=== PATIENT | male | born 1960 | race African-American/Black ===

== ENCOUNTER 2020-01-28 10:28 | Inpatient (IN) | payer BC, OTHER ==
[~2020-01-28] VITALS: Ht 188 cm; Wt 131.4 kg
[2020-01-28] MEDS ORDERED: SODIUM CHLORIDE 0.9% 1,000 ML IV ONE ×2 (11:15→13:30)
[2020-01-28 11:25] LABS: Basophils # (auto) 0.1 10 ^3/uL (0-0.2); Basophils % (auto) 0.6 % (0.0-2.0); Eosinophils # (auto) 0.2 10 ^3/uL (0-0.8); Lymphocytes # (auto) 1.4 10 ^3/uL (0.4-5.4); Mean Corpuscular Hemoglobin 30.5 pg (28.0-32.0); Mean Corpuscular Hgb Conc. 32.7 g/dL (32.0-36.0); Mean Corpuscular Volume 93.5 fL (80.0-100.0); Monocytes # (auto) 1.1 10 ^3/uL (0-1.3); Neutrophils # (auto) 5.7 10 ^3/uL (1.6-8.6); Neutrophils % (auto) 67.4 % (37.0-80.0); Nucleated Red Blood Cells % 0.1 %; Platelet Count (auto) 146 10^3/uL (140-450); Red Blood Cells 5.57 10^6/uL (4.5-5.90); Red Cell Distribution Width 15.6 % (11.8-14.3); White Blood Cell 8.4 10^3/uL (4.4-10.8)
[2020-01-28 11:41] LABS: Albumin 3.8 g/dL (3.4-5.0); Magnesium 2.4 mg/dL (1.6-2.6); Potassium 4.3 mmol/L (3.5-5.1)
[2020-01-28 11:47] LABS: BUN/Creatinine Ratio 11.9; Bilirubin, Total 1.4 mg/dL (0.2-1.0); Total Protein 9.4 g/dL (6.4-8.2)
[2020-01-28] MEDS ORDERED: FUROSEMIDE 40 MG/4 ML VIAL IV ONE (13:30)
[2020-01-28] MEDS ORDERED: SPIRONOLACTONE 25 MG TAB PO ONE (13:30)
[2020-01-28] MEDS ORDERED: ASPirin 81 mg TAB PO ONE (13:30)
[2020-01-28 15:52] LABS: Urine Bacteria NONE SEEN /hpf (None Seen); Urine Blood Negative /uL (Negative); Urine Hyaline Cast FEW /lpf (0 - 2); Urine Mucus FEW (None Seen); Urine Specific Gravity 1.009 (1.001-1.035); Urine WBC <1 /hpf (0 - 3)
[2020-01-28] MEDS ORDERED: MORPHINE SULF INJ 2 MG/ML SYRINGE 1ML IV PRN (16:45)
[2020-01-28] MEDS ORDERED: ONDANSETRON HCL 4 MG/2 ML VIAL IV PRN (16:45)
[2020-01-28] MEDS ORDERED: ENALAPRILAT 1.25 MG/ML-1ML VIAL IV PRN (16:45)
[2020-01-28] MEDS ORDERED: NITROGLYCERIN 0.4 MG SL TAB SL PRN (16:45)
[2020-01-28] MEDS ORDERED: ACETAMINOPHEN 500 MG TAB PO PRN (16:45)
[2020-01-28] MEDS ORDERED: ENOXAPARIN SOD 100 MG/1 ML SYRINGE SC ONE (20:00)
[2020-01-28 22:00] VITALS: BP 125/81
[2020-01-28] MEDS: METOPROLOL TARTRATE 25 MG TAB PO SCH (22:00)
[2020-01-28] MEDS: ATORVASTATIN 20 MG TAB PO SCH (22:17)
[2020-01-28 22:45] VITALS: BP 115/71
--- NOTE | 2020-01-28 23:38 | NUR ---
Received 59 y/o male alert and oriented. Came for cough and shortness of breath x 1 week. History of poorly controlled blood pressure and HiV, CKD3. Able to verbally respond, able to complete sentences but unable to offer information about self. No noted respiratory distress. Vitals stable. (Denied having any cough). On 2 LPM nc. Routine admission done. Urinal provided at bedside. Snack per patient request. Placed on NPO after midnight, patient expressed understanding. Recommended for cardio consult. Part of history taking, noted patient has issue with transportation as he is only renting a car. Will need follow up with SS or CM on discharge planning. Will endorse to next shift.
[2020-01-29] MEDS ORDERED: POM PO (04:26)
[2020-01-29] MEDS ORDERED: PNEUMOCOCCAL VACC POLYS 25 MCG/0.5 ML VIAL IM ONE (04:30)
--- NOTE | 2020-01-29 05:47 | NUR ---
Patient maintained on NPO after midnight. No acute distress overnight. Bed at lowest position. Fall precaution per protocols. Call light within reach.
--- NOTE | 2020-01-29 06:43 | NUR ---
Would like to be given both Pneumo and Flu vaccines while he is confined here in the hospital. Don't remember the last doses he had fro them.
--- NOTE | 2020-01-29 06:43 | NUR ---
Patient stated he only has biktarvy and tylenol as meds he takes at home.
[2020-01-29 06:47] VITALS: BP 110/69
[2020-01-29 06:54] LABS: INR 1.08 (0.9-1.15); Partial Thromboplastin Time 28.1 sec (23.0-31.2)
[2020-01-29 07:06] LABS: Potassium 4.2 mmol/L (3.5-5.1)
[2020-01-29 07:14] LABS: BUN/Creatinine Ratio 18.3; Calcium 8.5 mg/dL (8.5-10.1)
[2020-01-29 08:00] VITALS: BP 95/58
[2020-01-29 09:30] VITALS: BP 112/66
[2020-01-29] MEDS: ASPirin-EC 81 mg tab PO SCH (10:17)
[2020-01-29] MEDS: METOPROLOL TARTRATE 25 MG TAB PO SCH ×2 (10:17→21:42)
[2020-01-29] MEDS: FAMOTIDINE 20 MG TAB PO SCH (10:17)
[2020-01-29] MEDS: LISINOPRIL 10 MG TAB PO SCH (10:17)
[2020-01-29] MEDS: APIXABAN 5 MG TAB PO SCH ×2 (13:32→21:40)
[2020-01-29] MEDS: MORPHINE SULF INJ 2 MG/ML SYRINGE 1ML IV PRN ×2 (15:19→23:26)
[2020-01-29 16:39] VITALS: BP 109/75
--- NOTE | 2020-01-29 19:11 | NUR ---
Opening Shift Note Assumed care of patient after receiving report from AMERICO Williamson. Patient is awake and alert with no S/S of distress/SOB or pain. Call light within reach, bed in lowest locked position x2 side rails, HOB semi fowlers. Instructed on POC and to call for assist PRN, will continue to monitor for changes Q1hr and PRN.
[2020-01-29] MEDS: ATORVASTATIN 20 MG TAB PO SCH (21:41)
[2020-01-29 22:00] VITALS: BP 121/78
[2020-01-30] MEDS ORDERED: CALCIUM CARB 500 MG CHEW TAB PO PRN (01:45)
[2020-01-30] MEDS: HYDROcodone-ACET 5/325MG TAB PO PRN (02:51)
[2020-01-30 05:00] VITALS: BP 120/69
[2020-01-30 09:05] VITALS: BP 118/77
[2020-01-30] MEDS: ASPirin-EC 81 mg tab PO SCH (10:00)
[2020-01-30] MEDS ORDERED: PANTOPRAZOLE 40 MG TAB PO SCH (10:00)
[2020-01-30] MEDS: APIXABAN 5 MG TAB PO SCH ×2 (10:00→22:35)
[2020-01-30] MEDS: FAMOTIDINE 20 MG TAB PO SCH (10:00)
[2020-01-30] MEDS: METOPROLOL TARTRATE 25 MG TAB PO SCH ×2 (10:00→22:43)
[2020-01-30] MEDS: LISINOPRIL 10 MG TAB PO SCH (10:01)
[2020-01-30] MEDS ORDERED: HYDROmorphone HCL 2 MG/ML VL IV ONE (11:45)
[2020-01-30 12:04] LABS: Basophils # (auto) 0 10 ^3/uL (0-0.2); Basophils % (auto) 0.2 % (0.0-2.0); Eosinophils # (auto) 0 10 ^3/uL (0-0.8); Eosinophils % (auto) 0.3 % (0.0-7.0); Hematocrit 47.3 % (41.0-53.0); Hemoglobin 15.8 g/dL (13.5-17.5); Lymphocytes # (auto) 1.1 10 ^3/uL (0.4-5.4); Lymphocytes % (auto) 10.6 % (10.0-50.0); Mean Corpuscular Hemoglobin 31.3 pg (28.0-32.0); Mean Corpuscular Hgb Conc. 33.3 g/dL (32.0-36.0); Mean Corpuscular Volume 93.9 fL (80.0-100.0); Monocytes # (auto) 1.2 10 ^3/uL (0-1.3); Monocytes % (auto) 11.4 % (0.0-12.0); Neutrophils # (auto) 8.2 10 ^3/uL (1.6-8.6); Neutrophils % (auto) 77.5 % (37.0-80.0); Nucleated Red Blood Cells % 0.1 %; Platelet Count (auto) 179 10^3/uL (140-450); Red Blood Cells 5.04 10^6/uL (4.5-5.90); White Blood Cell 10.5 10^3/uL (4.4-10.8)
[2020-01-30 12:15] LABS: Albumin 3.6 g/dL (3.4-5.0); Calcium 9.5 mg/dL (8.5-10.1); Potassium 5.3 mmol/L (3.5-5.1)
[2020-01-30 12:17] LABS: Bilirubin, Total 1.2 mg/dL (0.2-1.0); Total Protein 9.5 g/dL (6.4-8.2)
[2020-01-30 13:00] VITALS: BP 125/83
[2020-01-30] MEDS ORDERED: SODIUM CHLORIDE 0.9% 1,000 ML IV ONE (13:30)
[2020-01-30] MEDS ORDERED: DOXYCYCLINE 100 MG TAB/CAP PO ONE (13:30)
[2020-01-30] MEDS ORDERED: cefTRIAXone 1GM/50ML D5W 50 ML IV ONE (13:30)
[2020-01-30] MEDS ORDERED: IOHEXOL 350 MG/ML 100ML IJ ONE (13:57)
--- NOTE | 2020-01-30 14:15 | NUR ---
assessment re: ss consult Patient is a 59 year old male who is alert and oriented. Patients cognitive abilities are intact. Prior to admission patient lived home alone and functioned independently. Patient informed me he is able to care for his own ADLs. Per patient he will return home to his prior living arrangements post discharge. Patient drove himself here and has his car in the parking lot. Patient informed me he has no need for DME prior to admission. 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 Patients PCP is Dr Soto. I informed patient of his ss consult of has no car, using a rental, no job, no access to food and medical care, no family here. 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 Patient has access to food, and medical care. Patient has good insurance and patient informed me his only issue was no getting the blood pressure pills he wanted. Patient informed me Dr Soto prescribed medication he did not want. Patient has talked to Marybeth Cm regarding changing PCP. Patient informed me he has no other issues. Patient is concerned about his health and wants to speak to the MD regarding his care. MD notified. I informed patient he has a right to speak to a social service liaison regarding all care. I informed patient he has a right to participate in any and all discharge planning. Patient does not have a POA and advanced directive. I have offered patient information on POA and advanced directives. I informed the patient the advantages and benefits of having an Advanced Directive. Patient verbalized understanding and agreed to discharge plan. Addendum: 01/30/20 at 1426 by Marybeth MATA Amended: Links added.
[2020-01-30 17:00] VITALS: BP 112/64
--- NOTE | 2020-01-30 19:20 | NUR ---
Opening Shift Note Assumed care of patient, awake and alert. No S/S of distress/SOB or pain. Safety measures in place bed in lowest position, side rails up x2, and call light within reach. Instructed on POC and to call for assist PRN, will continue to monitor for changes Q1hr and PRN.
[2020-01-30] MEDS: HYDROmorphone HCL 2 MG/ML VL IV PRN (19:51)
[2020-01-30 22:00] VITALS: BP 100/57
[2020-01-30] MEDS: DOXYCYCLINE 100 MG TAB/CAP PO SCH (22:35)
[2020-01-30] MEDS: ATORVASTATIN 20 MG TAB PO SCH (22:35)
--- NOTE | 2020-01-31 00:27 | NUR ---
IV removal IV DC'd with sterile technique, catheter fully intact. Pressure dressing applied to site. Patient tolerated procedure well. IV access obtained, via clean sterile technique by inserting 22 gauge catheter at Right hand after 1 attempt. IV secured properly. No trauma to site. Patient tolerated procedure well.
[2020-01-31] MEDS: HYDROmorphone HCL 2 MG/ML VL IV PRN ×3 (04:31→23:51)
[2020-01-31 05:00] VITALS: BP 127/65
[2020-01-31 06:47] LABS: Calcium 9.2 mg/dL (8.5-10.1)
--- NOTE | 2020-01-31 07:36 | NUR ---
CRITICAL POTASSIUM CRITICAL POTASSIUM- 5.6 HOSPITALIST PAGED.
[2020-01-31 07:40] LABS: Potassium 5.6 mmol/L (3.5-5.1)
--- NOTE | 2020-01-31 07:55 | NUR ---
RECEIVED CALL FROM HOSPITALIST NEW ORDERS RECEIVED, READ BACK AND VERIFIED.
--- NOTE | 2020-01-31 08:01 | NUR ---
SPOKE TO PHARMACY MEDICATION NOT AVAILABLE, HOSPITALIST PAGED.
--- NOTE | 2020-01-31 08:08 | NUR ---
HOSPITALIST DR CANTRELL CALLED. NEW ORDERS RECEIVED, READ BACK AND VERIFIED.
[2020-01-31] MEDS ORDERED: FUROSEMIDE 40 MG/4 ML VIAL IV ONE (08:30)
[2020-01-31] MEDS ORDERED: SODIUM ZIRCONIUM CYCL 10 GM PAK PO ONE (08:30)
[2020-01-31] MEDS ORDERED: SODIUM BICARBONATE 8.4% INJ 50ML SYRINGE IV ONE (08:30)
[2020-01-31] MEDS ORDERED: ALBUTEROL SULF 2.5 MG/0.5ML(0.5%) NEB SOLN NEB ONE (08:30)
[2020-01-31 08:36] VITALS: BP 95/51
[2020-01-31] MEDS: APIXABAN 5 MG TAB PO SCH ×2 (08:56→21:30)
[2020-01-31] MEDS: FAMOTIDINE 20 MG TAB PO SCH (08:56)
[2020-01-31] MEDS: DOXYCYCLINE 100 MG TAB/CAP PO SCH ×2 (08:57→21:30)
[2020-01-31] MEDS: ASPirin-EC 81 mg tab PO SCH (08:57)
[2020-01-31] MEDS: cefTRIAXone 1GM/50ML D5W 50 ML IV SCH (08:58)
--- NOTE | 2020-01-31 09:21 | NUR ---
Respiratory note: PT GIVEN A ONE TIME MEDNEB TX VIA AEROSOL MASK OF 20MG ALBUTEROL/4.0 ML SALINE OVER 20-30 MINUTES FOR HYPERKALEMIA PER DR REDDING ORDER. NO ADVERSE EFFECTS NOTED. PT TOLERATED TX WELL. SPO2 97% ON 4L NC, HR 69, RR 18, BS CLEAR/DIMINISHED BILATERALLY. WILL CONTINUE TO MONITOR PT
[2020-01-31] MEDS: METOPROLOL TARTRATE 25 MG TAB PO SCH (10:00)
--- NOTE | 2020-01-31 12:35 | NUR ---
Nutrition Assessment Est energy needs [id number] kcal (14-16 kcal/kg BW 126.5kg) Est protein needs 86-104g (1-1.2g/kg IBW 86kg) Will reassess prn Addendum: 01/31/20 at [address] Amended: Links added.
[2020-01-31 12:53] VITALS: BP 141/73
[2020-01-31] MEDS: SODIUM ZIRCONIUM CYCL 10 GM PAK PO SCH ×2 (15:33→22:00)
[2020-01-31 17:00] VITALS: BP 147/82
--- NOTE | 2020-01-31 18:48 | NUR ---
Closing note Pt. resting in bed. No s/s of distress noted. Care endorsed.
--- NOTE | 2020-01-31 20:00 | NUR ---
Opening Shift Note Assumed care of patient, awake and alert. No S/S of distress/SOB or pain. Instructed on POC and to call for assist PRN, will continue to monitor for changes Q1hr and PRN. Bed in low position and call in reach.
[2020-01-31] MEDS: ATORVASTATIN 20 MG TAB PO SCH (21:31)
[2020-01-31] MEDS: HYDROcodone-ACET 5/325MG TAB PO PRN (21:31)
--- NOTE | 2020-01-31 21:31 | NUR ---
Patient complains of pain to left lateral back 7 out of 10 on 1-10 pain scale. He states he finds comfort sitting up with head on bedside table. Medication with [place] on tab PO.
[2020-01-31 23:01] VITALS: BP 129/78
--- NOTE | 2020-01-31 23:51 | NUR ---
Patient complains of left upper back pain. Medicated with Dilaudid 1 mg IVP for pain 6/10. Patient noted leaning forward with head on bedside table.
--- NOTE | 2020-02-01 03:30 | NUR ---
Opening Shift Note Assumed care of patient, awake and alert. No S/S of distress/SOB or pain. Bed in lowest locked position, side rails up x2, call light within reach. Instructed on POC and to call for assist PRN, will continue to monitor for changes Q1hr and PRN. Addendum: 02/01/20 at 0401 by TOMAS FLORES RN RN ADDITION: Assumed care from ANNABELLE Hilton for continuation of care.
--- NOTE | 2020-02-01 03:30 | NUR ---
Patient's status reported to AMERICO Banks.
[2020-02-01 05:34] VITALS: BP 137/77
[2020-02-01] MEDS: SODIUM ZIRCONIUM CYCL 10 GM PAK PO SCH ×3 (06:17→21:02)
[2020-02-01] MEDS: HYDROmorphone HCL 2 MG/ML VL IV PRN ×3 (06:17→21:03)
[2020-02-01 06:56] LABS: BUN/Creatinine Ratio 23.5; Calcium 9.1 mg/dL (8.5-10.1); Potassium 5.5 mmol/L (3.5-5.1)
--- NOTE | 2020-02-01 07:02 | NUR ---
Closing Note Patient sitting up in bed, no s/s of distress. Bed in lowest locked position, call light within reach. Will endorse care to dayshift RN.
--- NOTE | 2020-02-01 07:28 | NUR ---
Opening Shift Note Assumed care of patient, awake and alert x4. No S/S of distress/SOB. Pt. reports pain 5 out of 10. This RN will address this as prescribed by doctor. Safety measures in place bed in lowest position, side rails up x2, and call light within reach. Instructed on POC and to call for assist PRN, will continue to monitor for changes Q1hr and PRN.
[2020-02-01 09:00] VITALS: BP 138/68
[2020-02-01] MEDS: cefTRIAXone 1GM/50ML D5W 50 ML IV SCH (10:47)
[2020-02-01] MEDS: DOXYCYCLINE 100 MG TAB/CAP PO SCH ×2 (10:48→21:02)
[2020-02-01] MEDS: ASPirin-EC 81 mg tab PO SCH (10:48)
[2020-02-01] MEDS: APIXABAN 5 MG TAB PO SCH ×2 (10:48→21:02)
[2020-02-01] MEDS: FAMOTIDINE 20 MG TAB PO SCH (10:56)
[2020-02-01] MEDS ORDERED: FUROSEMIDE 40 MG/4 ML VIAL IV ONE (11:15)
[2020-02-01] MEDS ORDERED: SODIUM CHLORIDE 0.9% 1,000 ML IV ONE (11:30)
--- NOTE | 2020-02-01 12:24 | NUR ---
Specimen cup provided to pt. Pt. asher.
[2020-02-01] MEDS ORDERED: DOCUSATE SOD 100 MG CAP PO ONE (12:45)
[2020-02-01 13:00] VITALS: BP 154/87
[2020-02-01 17:00] VITALS: BP 144/78
--- NOTE | 2020-02-01 18:20 | NUR ---
This RN gave hydroguard cream to Pt. for dry scaly skin on fourth toe of right foot.
--- NOTE | 2020-02-01 18:48 | NUR ---
Closing note Pt. resting in bed. No s/s of distress noted. Care endorsed.
[2020-02-01] MEDS: DOCUSATE SOD 100 MG CAP PO SCH (21:02)
[2020-02-01] MEDS: ATORVASTATIN 20 MG TAB PO SCH (21:02)
[2020-02-01 23:38] VITALS: BP 131/92
[2020-02-02 05:30] VITALS: BP 126/62
[2020-02-02 06:29] LABS: BUN/Creatinine Ratio 21.1; Calcium 8.7 mg/dL (8.5-10.1); Potassium 3.7 mmol/L (3.5-5.1)
--- NOTE | 2020-02-02 06:32 | NUR ---
Closing Note Patient lying in bed, eyes closed, respirations even and unlabored, appears asleep. Patient awakens to name and touch. Bed in lowest locked position, call light within reach. Will endorse care to dayshift RN.
[2020-02-02] MEDS: SODIUM ZIRCONIUM CYCL 10 GM PAK PO SCH (06:44)
--- NOTE | 2020-02-02 07:20 | NUR ---
Opening Shift Note Assumed care of patient, awake and alert x4. No S/S of distress/SOB. Safety measures in place bed in lowest position, side rails up x2, and call light within reach. Instructed on POC and to call for assist PRN, will continue to monitor for changes Q1hr and PRN.
[2020-02-02 09:00] VITALS: BP 113/65
[2020-02-02] MEDS: cefTRIAXone 1GM/50ML D5W 50 ML IV SCH (09:52)
[2020-02-02] MEDS: DOXYCYCLINE 100 MG TAB/CAP PO SCH ×2 (09:57→21:43)
[2020-02-02] MEDS: FAMOTIDINE 20 MG TAB PO SCH (09:57)
[2020-02-02] MEDS: ASPirin-EC 81 mg tab PO SCH (09:58)
[2020-02-02] MEDS: DOCUSATE SOD 100 MG CAP PO SCH ×2 (09:58→21:42)
[2020-02-02] MEDS: APIXABAN 5 MG TAB PO SCH ×2 (09:58→21:42)
[2020-02-02 13:00] VITALS: BP 132/71
[2020-02-02 17:00] VITALS: BP 141/85
--- NOTE | 2020-02-02 18:49 | NUR ---
Closing note Pt. resting in bed. No s/s of distress noted. Care endorsed.
--- NOTE | 2020-02-02 19:25 | NUR ---
Opening Shift Note Assumed care of patient, awake and alert A/O x 4. No S/S of distress/SOB or pain. Safety measures in place bed lowered and locked side rails up x 2 call light and beside table within reach. Tele box matches Pt and all leads are in position. Instructed on POC and to call for assist PRN, will continue to monitor for changes Q1hr and PRN.
[2020-02-02] MEDS: ATORVASTATIN 20 MG TAB PO SCH (21:43)
[2020-02-02] MEDS: HYDROmorphone HCL 2 MG/ML VL IV PRN (21:44)
[2020-02-02 23:08] VITALS: BP 124/74
[2020-02-03] MEDS: HYDROmorphone HCL 2 MG/ML VL IV PRN ×3 (01:45→18:01)
[2020-02-03 05:00] VITALS: BP 134/71
--- NOTE | 2020-02-03 07:45 | NUR ---
Opening Note Received report from marine firefighter RN. Patient is awake, alert and oriented x4. No signs or symptoms of distress noted at this time. Patient is on room air, respirations even and unlabored. Reviewed plan of care with patient, patient verbalized understanding. Bed in low and locked position, call light within reach. Will continue to monitor Q1 hour and PRN.
[2020-02-03] MEDS: DOCUSATE SOD 100 MG CAP PO SCH ×2 (08:31→22:20)
[2020-02-03] MEDS: FAMOTIDINE 20 MG TAB PO SCH (08:31)
[2020-02-03] MEDS: APIXABAN 5 MG TAB PO SCH ×2 (08:32→22:20)
[2020-02-03] MEDS: DOXYCYCLINE 100 MG TAB/CAP PO SCH ×2 (08:32→22:20)
[2020-02-03] MEDS: ASPirin-EC 81 mg tab PO SCH (08:32)
--- NOTE | 2020-02-03 08:35 | NUR ---
Pain Patient complains of pain to left upper back 8/10 and is requesting pain medications. Will medicate per orders. Will continue to monitor Q1 hour and PRN.
[2020-02-03] MEDS: cefTRIAXone 1GM/50ML D5W 50 ML IV SCH (08:39)
[2020-02-03 09:00] VITALS: BP 133/76
--- NOTE | 2020-02-03 09:05 | NUR ---
Pain reassessment Patient states pain is 4/10 and is resting comfortably in bed. Will continue to monitor Q1 hour and PRN.
--- NOTE | 2020-02-03 11:20 | NUR ---
Dr. Coy at bedside MD at bedside at bedside discussing plan of care with patient and this RN. New order received for chest x-ray, will implement new order. Will continue to monitor Q1 hour and PRN.
[2020-02-03 13:00] VITALS: BP 127/75
--- NOTE | 2020-02-03 14:50 | NUR ---
Nutrition Followup Note Wt: 131.2 kg Pt was sleeping with no family by bedside. per pt records pt with pulmonary embolism. pt with no distress noted. pt is currently on cardiac K 2 diet with adequate Po of 75% x 6 per RN doc Est energy needs [phone] kcal (14-16 kcal/kg BW 126.5kg) Est protein needs 86-104g (1-1.2g/kg IBW 86kg) Will reassess prn Labs: BUN 24 H BM: Pt with 1 BMs yesterday per RN note Skin: BS 21 low risk, full details in residential caregiver note PES: Obesity aeb pt with a BMI of 35.8kg/m2 r/t caloric intake in excess of needs Comments: Will continue to monitor PO intake, skin status. F/u mod 3-5 days Rec: 1) refer pt to [facility] on DC. 2) Continue current plan of care
[2020-02-03 16:58] VITALS: BP 133/79
--- NOTE | 2020-02-03 19:15 | NUR ---
Closing Note Report given to plant operator/shift supervisor RN. No signs or symptoms of distress noted at this time.
[2020-02-03 20:00] VITALS: BP 140/75
[2020-02-03 22:00] VITALS: BP 140/75
[2020-02-03] MEDS: ATORVASTATIN 20 MG TAB PO SCH (22:20)
[2020-02-04] MEDS: HYDROmorphone HCL 2 MG/ML VL IV PRN (04:29)
[2020-02-04 05:00] VITALS: BP 117/59
--- NOTE | 2020-02-04 07:30 | NUR ---
Opening Shift Note Assumed care of patient, awake and alert. No S/S of distress/SOB or pain. Instructed on POC and to call for assist PRN, will continue to monitor for changes Q1hr and PRN. Fall precautions in place per safety protocol.
[2020-02-04 08:58] VITALS: BP 139/71
[2020-02-04] MEDS: APIXABAN 5 MG TAB PO SCH (09:14)
[2020-02-04] MEDS: DOCUSATE SOD 100 MG CAP PO SCH (09:14)
[2020-02-04] MEDS: FAMOTIDINE 20 MG TAB PO SCH (09:14)
[2020-02-04] MEDS: ASPirin-EC 81 mg tab PO SCH (09:14)
[2020-02-04] MEDS: cefTRIAXone 1GM/50ML D5W 50 ML IV SCH (09:14)
[2020-02-04] MEDS: DOXYCYCLINE 100 MG TAB/CAP PO SCH (09:15)
[2020-02-04] MEDS ORDERED: APIX5TAB PO (09:47)
[2020-02-04] MEDS ORDERED: ATOR20TA50 PO (09:48)
[2020-02-04 10:15] LABS: Basophils # (auto) 0 10 ^3/uL (0-0.2); Basophils % (auto) 0.5 % (0.0-2.0); Eosinophils # (auto) 0.2 10 ^3/uL (0-0.8); Eosinophils % (auto) 3.1 % (0.0-7.0); Hematocrit 40.4 % (41.0-53.0); Hemoglobin 13.6 g/dL (13.5-17.5); Lymphocytes # (auto) 0.7 10 ^3/uL (0.4-5.4); Mean Corpuscular Hemoglobin 31.2 pg (28.0-32.0); Mean Corpuscular Hgb Conc. 33.7 g/dL (32.0-36.0); Mean Corpuscular Volume 92.8 fL (80.0-100.0); Monocytes # (auto) 0.5 10 ^3/uL (0-1.3); Monocytes % (auto) 8.3 % (0.0-12.0); Neutrophils # (auto) 4.5 10 ^3/uL (1.6-8.6); Neutrophils % (auto) 76.1 % (37.0-80.0); Platelet Count (auto) 290 10^3/uL (140-450); Red Blood Cells 4.35 10^6/uL (4.5-5.90); Red Cell Distribution Width 14.2 % (11.8-14.3); White Blood Cell 5.9 10^3/uL (4.4-10.8)
[2020-02-04 10:37] LABS: BUN/Creatinine Ratio 12.5; Calcium 9.1 mg/dL (8.5-10.1); Potassium 3.7 mmol/L (3.5-5.1)
[2020-02-04] MEDS ORDERED: [UNRECOGNIZED DRUG - CODE] PO (11:21)
[2020-02-04] MEDS ORDERED: PNEUMOCOCCAL VACC POLYS 25 MCG/0.5 ML VIAL IM ONE (12:15)
[2020-02-04] MEDS ORDERED: LEVOTHYROXINE SODIUM 50 MCG TAB PO ONE (12:30)
[2020-02-04 12:32] VITALS: BP 129/88
[2020-02-04 13:00] VITALS: BP 129/88
--- NOTE | 2020-02-04 14:30 | NUR ---
Discharge instructions given as ordered. Encourage to follow up with PMD as instructed. All questions and concerns addressed. Patient verbalized understanding. Medication reconciliation form completed and copy given to patient. Needed vaccines given. IV removed with catheter intact, pressure dressing applied. Telemetry unit returned to ICU. Patient taken to vehicle via wheelchair with all personal belongings, accompanied by staff and family member. New medications given to patient at bedside, including Eliquis. Discharge appointments made with PCP, Pulmonology, and Cardiology. No distress noted at time of departure.
[2020-02-05] MEDS ORDERED: LEVOTHYROXINE SODIUM 50 MCG TAB PO SCH (07:00)
[2020-02-05] MEDS ORDERED: APIXABAN 5 MG TAB PO SCH (22:00)
== END 2020-02-04 14:30 | disposition home or self-care (01) | DRG 280 ==
LOC: ER 10:28 → TELE 10:29 → TELE-WESTW 22:31
PROVIDERS: ADMIT Nurse Practitioner Acute Care; ATTEND Internal Medicine Nephrology
DX: I21.A1 Myocardial infarction type 2 (principal); J96.01 Acute respiratory failure with hypoxia; I26.99 Other pulmonary embolism without acute cor pulmonale; J18.9 Pneumonia, unspecified organism; J90 Pleural effusion, not elsewhere classified; J98.11 Atelectasis; N17.9 Acute kidney failure, unspecified; I82.401 Acute embolism and thrombosis of unspecified deep veins of right lower extremity; N18.30 Chronic kidney disease, stage 3 unspecified; I12.9 Hypertensive chronic kidney disease with stage 1 through stage 4 chronic kidney disease, or unspecified chronic kidney disease; E66.01 Morbid (severe) obesity due to excess calories; E87.5 Hyperkalemia; E03.9 Hypothyroidism, unspecified; Z20.828 Contact with and (suspected) exposure to other viral communicable diseases; Z68.37 Body mass index [BMI] 37.0-37.9, adult; Z82.49 Family history of ischemic heart disease and other diseases of the circulatory system; Z79.899 Other long term (current) drug therapy
CPT/HCPCS: 36415; 36600; 71045; 71046; 71275; 78582; 80048; 80053; 81001; 82805; 83735; 83880; 84132; 84439; 84443; 84484; 85025; 85379; 85610; 85730; 86141; 87081; 87426; 93306; 93970; 94640; G0378; J0696; J2405

== ENCOUNTER 2020-08-17 08:45 | Inpatient (IN) | payer BC ==
[~2020-08-17] VITALS: Ht 185.4 cm; Wt 127.0 kg
[~2020-08-17 08:45] MED LIST: APIX5TAB PO; ATOR20TA50 PO; POM PO; [UNRECOGNIZED DRUG - CODE] PO
[2020-08-17] MEDS ORDERED: methylPREDNISolone SOD SUCC 125 MG/2 ML VL IV ONE (09:15)
[2020-08-17] MEDS ORDERED: PANTOPRAZOLE 40 MG/10 ML VIAL INJ IV ONE (09:15)
[2020-08-17] MEDS ORDERED: ONDANSETRON HCL 4 MG/2 ML VIAL IV ONE (11:15)
[2020-08-17] MEDS ORDERED: SODIUM CHLORIDE 0.9% 1,000 ML IV ONE ×2 (11:15)
[2020-08-17] MEDS ORDERED: MORPHINE SULFATE 4 MG/ML SYR/VIAL IV ONE (11:15)
[2020-08-17 11:32] LABS: Basophils # (auto) 0 10 ^3/uL (0-0.2); Basophils % (auto) 0.3 % (0.0-2.0); Eosinophils # (auto) 0.1 10 ^3/uL (0-0.8); Eosinophils % (auto) 0.8 % (0.0-7.0); Hematocrit 47.5 % (41.0-53.0); Lymphocytes # (auto) 0.6 10 ^3/uL (0.4-5.4); Lymphocytes % (auto) 5.7 % (10.0-50.0); Mean Corpuscular Hemoglobin 30.4 pg (28.0-32.0); Mean Corpuscular Hgb Conc. 33.7 g/dL (32.0-36.0); Mean Corpuscular Volume 90.4 fL (80.0-100.0); Monocytes # (auto) 0.5 10 ^3/uL (0-1.3); Monocytes % (auto) 4.9 % (0.0-12.0); Neutrophils # (auto) 9.2 10 ^3/uL (1.6-8.6); Neutrophils % (auto) 88.3 % (37.0-80.0); Nucleated Red Blood Cells % 0.2 %; Platelet Count (auto) 246 10^3/uL (140-450); Red Blood Cells 5.25 10^6/uL (4.5-5.90); White Blood Cell 10.4 10^3/uL (4.4-10.8)
[2020-08-17 11:51] LABS: INR 1.03 (0.9-1.15); Partial Thromboplastin Time 25.6 sec (23.0-31.2)
[2020-08-17 12:15] LABS: Blood Urea Nitrogen 19 mg/dL (7-18); Calcium 9.1 mg/dL (8.5-10.1); Carbon Dioxide 19 mmol/L (21-32); Glucose 98 mg/dL (74-106)
[2020-08-17] MEDS ORDERED: ONDANSETRON HCL 4 MG/2 ML VIAL IV PRN (12:30)
[2020-08-17] MEDS ORDERED: NITROGLYCERIN 0.4 MG SL TAB SL PRN (12:30)
[2020-08-17] MEDS ORDERED: hydrALAZINE HCL 20 MG/ML VL IV PRN (12:30)
[2020-08-17] MEDS ORDERED: ACETAMINOPHEN 500 MG TAB PO PRN (12:30)
[2020-08-17] MEDS ORDERED: MORPHINE SULF INJ 2 MG/ML SYRINGE 1ML IV PRN ×2 (12:30)
[2020-08-17] MEDS ORDERED: IOHEXOL 350 MG/ML 100ML IJ ONE (12:32)
[2020-08-17 12:56] LABS: Alanine Aminotransferase 26 U/L (16-61); Alkaline Phosphatase 47 U/L (45-117); Aspartate Aminotransferase 30 U/L (15-37); BUN/Creatinine Ratio 17.6; Bilirubin, Total 0.9 mg/dL (0.2-1.0); GFR African American 90 mL/min; GFR Non-African American 75 mL/min; Total Protein 8.9 g/dL (6.4-8.2)
[2020-08-17 13:01] LABS: Anion Gap 10 (5-15); Chloride 107 mmol/L (98-107); Potassium 4.1 mmol/L (3.5-5.1); Sodium 136 mmol/L (136-145)
[2020-08-17] MEDS: cefTRIAXone 1GM/50ML D5W 50 ML IV SCH (13:21)
[2020-08-17] MEDS: HYDROcodone-ACET 5/325MG TAB PO PRN ×2 (15:09→21:40)
[2020-08-17] MEDS: CLINDAMYCIN 300MG IV 50 ML IV SCH ×2 (15:09→21:39)
[2020-08-17 15:42] VITALS: BP 141/81
[2020-08-17] MEDS ORDERED: BICT1TAB PO (16:09)
[2020-08-17 16:30] VITALS: BP 144/74
[2020-08-17 19:31] LABS: Urine Bacteria NONE SEEN /hpf (None Seen); Urine Blood Negative /uL (Negative); Urine Mucus FEW (None Seen); Urine WBC 2 /hpf (0 - 3)
[2020-08-17 19:32] LABS: Urine Specific Gravity > 1.050 (1.001-1.035)
[2020-08-17 21:39] VITALS: BP 145/69
[2020-08-17] MEDS: ENOXAPARIN SOD 150 MG/1 ML SYRINGE SC SCH (21:40)
[2020-08-18] MEDS: CLINDAMYCIN 300MG IV 50 ML IV SCH ×3 (05:38→21:39)
[2020-08-18] MEDS: HYDROcodone-ACET 5/325MG TAB PO PRN ×2 (05:39→13:40)
[2020-08-18] MEDS: LEVOTHYROXINE SODIUM 50 MCG TAB PO SCH (05:39)
[2020-08-18 08:50] VITALS: BP 131/77
[2020-08-18] MEDS: cefTRIAXone 1GM/50ML D5W 50 ML IV SCH (08:51)
[2020-08-18] MEDS: PANTOPRAZOLE 40 MG TAB PO SCH (08:52)
[2020-08-18] MEDS: ENOXAPARIN SOD 150 MG/1 ML SYRINGE SC SCH (08:52)
[2020-08-18] MEDS: NIFEdipine ER 30 MG TAB PO SCH (08:52)
[2020-08-18] MEDS: FLORASTOR (S. BOULARDII) 250 MG CAP PO SCH (08:52)
[2020-08-18] MEDS: BIKTARVY PO SCH (08:53)
[2020-08-18] MEDS ORDERED: ATORVASTATIN 20 MG TAB PO SCH (10:00)
[2020-08-18 13:00] VITALS: BP 134/77
[2020-08-18 16:50] VITALS: BP 108/60
[2020-08-18] MEDS: ATORVASTATIN 20 MG TAB PO SCH (21:39)
[2020-08-18] MEDS: APIXABAN 5 MG TAB PO SCH (21:39)
[2020-08-18 22:00] VITALS: BP 122/75
[2020-08-19 05:11] VITALS: BP 113/66
[2020-08-19] MEDS: CLINDAMYCIN 300MG IV 50 ML IV SCH ×3 (05:44→22:22)
[2020-08-19] MEDS: LEVOTHYROXINE SODIUM 50 MCG TAB PO SCH (06:37)
[2020-08-19 06:41] LABS: Basophils # (auto) 0 10 ^3/uL (0-0.2); Basophils % (auto) 0.6 % (0.0-2.0); Eosinophils # (auto) 0.1 10 ^3/uL (0-0.8); Eosinophils % (auto) 1.3 % (0.0-7.0); Hematocrit 43.4 % (41.0-53.0); Hemoglobin 14.5 g/dL (13.5-17.5); Lymphocytes # (auto) 1.2 10 ^3/uL (0.4-5.4); Lymphocytes % (auto) 17.5 % (10.0-50.0); Mean Corpuscular Hemoglobin 30.4 pg (28.0-32.0); Mean Corpuscular Hgb Conc. 33.5 g/dL (32.0-36.0); Mean Corpuscular Volume 90.8 fL (80.0-100.0); Monocytes # (auto) 0.7 10 ^3/uL (0-1.3); Monocytes % (auto) 10.4 % (0.0-12.0); Neutrophils # (auto) 4.7 10 ^3/uL (1.6-8.6); Neutrophils % (auto) 70.2 % (37.0-80.0); Nucleated Red Blood Cells % 0.1 %; Platelet Count (auto) 273 10^3/uL (140-450); Red Blood Cells 4.77 10^6/uL (4.5-5.90); Red Cell Distribution Width 13.9 % (11.8-14.3); White Blood Cell 6.7 10^3/uL (4.4-10.8)
[2020-08-19 06:50] LABS: BUN/Creatinine Ratio 22.5; Calcium 8.2 mg/dL (8.5-10.1); Potassium 4.1 mmol/L (3.5-5.1)
[2020-08-19 09:00] VITALS: BP 124/69
[2020-08-19] MEDS: FLORASTOR (S. BOULARDII) 250 MG CAP PO SCH (10:07)
[2020-08-19] MEDS: APIXABAN 5 MG TAB PO SCH ×2 (10:07→22:22)
[2020-08-19] MEDS: cefTRIAXone 1GM/50ML D5W 50 ML IV SCH (10:07)
[2020-08-19] MEDS: HYDROcodone-ACET 5/325MG TAB PO PRN ×2 (10:07→19:41)
[2020-08-19] MEDS: BIKTARVY PO SCH (10:08)
[2020-08-19] MEDS: NIFEdipine ER 30 MG TAB PO SCH (10:08)
[2020-08-19] MEDS: PANTOPRAZOLE 40 MG TAB PO SCH (10:08)
[2020-08-19 13:00] VITALS: BP 139/75
[2020-08-19 16:49] VITALS: BP 139/72
[2020-08-19 22:00] VITALS: BP 136/75
[2020-08-19] MEDS: ATORVASTATIN 20 MG TAB PO SCH (22:23)
[2020-08-20 05:00] VITALS: BP 134/80
[2020-08-20] MEDS: CLINDAMYCIN 300MG IV 50 ML IV SCH ×2 (05:39→14:00)
[2020-08-20] MEDS: LEVOTHYROXINE SODIUM 50 MCG TAB PO SCH (06:40)
[2020-08-20 09:02] VITALS: BP 123/71
[2020-08-20] MEDS: cefTRIAXone 1GM/50ML D5W 50 ML IV SCH (09:39)
[2020-08-20] MEDS: PANTOPRAZOLE 40 MG TAB PO SCH (09:41)
[2020-08-20] MEDS: APIXABAN 5 MG TAB PO SCH (09:42)
[2020-08-20] MEDS: FLORASTOR (S. BOULARDII) 250 MG CAP PO SCH (09:42)
[2020-08-20] MEDS: NIFEdipine ER 30 MG TAB PO SCH (09:43)
[2020-08-20] MEDS: BIKTARVY PO SCH (09:44)
[2020-08-20] MEDS ORDERED: APIX5TAB PO (09:57)
[2020-08-20] MEDS ORDERED: NIFE1TAB30 PO (09:57)
[2020-08-20] MEDS ORDERED: LEV50T PO (09:57)
[2020-08-20] MEDS ORDERED: CLIN300C8 PO (10:04)
[2020-08-20] MEDS ORDERED: SACC250C PO (10:04)
[2020-08-20 12:50] VITALS: BP 128/73
[2020-08-20 12:54] VITALS: BP 128/73
[2020-08-25] MEDS ORDERED: APIXABAN 5 MG TAB PO SCH (22:00)
== END 2020-08-20 15:15 | disposition home or self-care (01) | DRG 300 ==
LOC: ER 08:45 → TELE 12:24 → TELE-CENTR 14:27
PROVIDERS: ADMIT Nurse Practitioner Acute Care; ATTEND Internal Medicine
DX: I82.411 Acute embolism and thrombosis of right femoral vein (principal); L03.115 Cellulitis of right lower limb; D68.69 Other thrombophilia; I82.431 Acute embolism and thrombosis of right popliteal vein; E66.01 Morbid (severe) obesity due to excess calories; I10 Essential (primary) hypertension; Z20.822 Contact with and (suspected) exposure to COVID-19; T78.40XA Allergy, unspecified, initial encounter; X58.XXXA Exposure to other specified factors, initial encounter; E78.5 Hyperlipidemia, unspecified; E03.9 Hypothyroidism, unspecified; Z79.01 Long term (current) use of anticoagulants; Z86.711 Personal history of pulmonary embolism; Z86.718 Personal history of other venous thrombosis and embolism; Z91.14 Patient's other noncompliance with medication regimen; Z68.36 Body mass index [BMI] 36.0-36.9, adult
CPT/HCPCS: 36415; 71045; 71275; 80048; 80053; 81001; 83880; 84443; 84484; 85025; 85610; 85730; 87426; 93971; 96361; 96374; 96375; C9113; G0378; J0696; J2405; J3490

== ENCOUNTER → 2020-08-31 | Outpatient (CLI) | payer BC ==
[~2020-08-31] MED LIST changes: +BICT1TAB PO; +CLIN300C8 PO; +LEV50T PO; +NIFE1TAB30 PO; -POM PO; +SACC250C PO
[2020-08-31 12:20] LABS: Urine Bacteria NONE SEEN /hpf (None Seen); Urine Blood Negative /uL (Negative); Urine Mucus FEW (None Seen); Urine Specific Gravity 1.024 (1.001-1.035); Urine WBC 2 /hpf (0 - 3)
[2020-08-31 12:39] LABS: Albumin 3.2 g/dL (3.4-5.0); BUN/Creatinine Ratio 16.1; Calcium 8.8 mg/dL (8.5-10.1); Potassium 3.7 mmol/L (3.5-5.1)
[2020-08-31 12:45] LABS: Total Protein 8.7 g/dL (6.4-8.2)
== END | disposition home or self-care (01) ==
LOC: LAB 11:50
PROVIDERS: ATTEND Student in an Organized Health Care Education/Training Program
DX: I10 Essential (primary) hypertension (principal); E03.9 Hypothyroidism, unspecified; R73.9 Hyperglycemia, unspecified; N39.0 Urinary tract infection, site not specified; B20 Human immunodeficiency virus [HIV] disease
CPT/HCPCS: 36415; 80053; 80061; 81001; 83036; 84443; 87086

== ENCOUNTER 2021-03-04 17:38 | Inpatient (IN) | payer BC ==
[~2021-03-04] VITALS: Ht 185.4 cm; Wt 140.5 kg
[2021-03-04] MEDS ORDERED: ENOXAPARIN SOD 100 MG/1 ML SYRINGE SC ONE (18:15)
[2021-03-04 19:37] LABS: Basophils # (auto) 0 10 ^3/uL (0-0.2); Basophils % (auto) 0.7 % (0.0-2.0); Eosinophils # (auto) 0.3 10 ^3/uL (0-0.8); Eosinophils % (auto) 3.8 % (0.0-7.0); Hematocrit 43.2 % (41.0-53.0); Hemoglobin 14.1 g/dL (13.5-17.5); Lymphocytes # (auto) 1.2 10 ^3/uL (0.4-5.4); Mean Corpuscular Hemoglobin 30.6 pg (28.0-32.0); Mean Corpuscular Hgb Conc. 32.7 g/dL (32.0-36.0); Mean Corpuscular Volume 93.6 fL (80.0-100.0); Monocytes # (auto) 0.6 10 ^3/uL (0-1.3); Monocytes % (auto) 8.9 % (0.0-12.0); Neutrophils # (auto) 4.8 10 ^3/uL (1.6-8.6); Neutrophils % (auto) 68.6 % (37.0-80.0); Nucleated Red Blood Cells % 0.1 %; Red Blood Cells 4.61 10^6/uL (4.5-5.90); Red Cell Distribution Width 14.5 % (11.8-14.3); White Blood Cell 6.9 10^3/uL (4.4-10.8)
[2021-03-04 19:51] LABS: Albumin 3.4 g/dL (3.4-5.0); BUN/Creatinine Ratio 13.8; Potassium 4.7 mmol/L (3.5-5.1)
[2021-03-04 19:53] LABS: Bilirubin, Total 0.7 mg/dL (0.2-1.0)
[2021-03-04] MEDS ORDERED: ONDANSETRON HCL 4 MG/2 ML VIAL IV ONE (21:00)
[2021-03-04] MEDS ORDERED: MORPHINE SULFATE 4 MG/ML SYR/VIAL IV ONE (21:00)
[2021-03-04] MEDS ORDERED: TEMAZEPAM 15 MG CAP PO PRN (21:30)
[2021-03-04] MEDS ORDERED: ACETAMINOPHEN 325 MG TAB PO PRN (21:30)
[2021-03-04] MEDS ORDERED: ONDANSETRON HCL 4 MG/2 ML VIAL IV PRN (21:30)
[2021-03-04] MEDS: ATORVASTATIN 20 MG TAB PO SCH (22:09)
[2021-03-04 22:36] LABS: INR 1.06 (0.9-1.15); Partial Thromboplastin Time 23.1 sec (23.6-33.0)
[2021-03-05 02:59] VITALS: BP 114/57
[2021-03-05 05:00] VITALS: BP 114/57
[2021-03-05] MEDS: HYDROcodone-ACET 5/325MG TAB PO PRN ×2 (06:26→18:20)
[2021-03-05] MEDS: LEVOTHYROXINE SODIUM 50 MCG TAB PO SCH (06:26)
[2021-03-05 08:58] LABS: Basophils # (auto) 0 10 ^3/uL (0-0.2); Eosinophils # (auto) 0.3 10 ^3/uL (0-0.8); Eosinophils % (auto) 6.9 % (0.0-7.0); Hematocrit 39.8 % (41.0-53.0); Lymphocytes # (auto) 1.1 10 ^3/uL (0.4-5.4); Lymphocytes % (auto) 25.2 % (10.0-50.0); Mean Corpuscular Hemoglobin 30.8 pg (28.0-32.0); Mean Corpuscular Hgb Conc. 32.8 g/dL (32.0-36.0); Mean Corpuscular Volume 93.9 fL (80.0-100.0); Monocytes # (auto) 0.5 10 ^3/uL (0-1.3); Monocytes % (auto) 11.2 % (0.0-12.0); Neutrophils # (auto) 2.5 10 ^3/uL (1.6-8.6); Neutrophils % (auto) 55.7 % (37.0-80.0); Nucleated Red Blood Cells % 0.2 %; Red Blood Cells 4.24 10^6/uL (4.5-5.90); Red Cell Distribution Width 14.9 % (11.8-14.3); White Blood Cell 4.5 10^3/uL (4.4-10.8)
[2021-03-05 09:00] VITALS: BP 139/71
[2021-03-05] MEDS ORDERED: POM PO (09:08)
[2021-03-05 09:10] LABS: BUN/Creatinine Ratio 16.7; Calcium 8.3 mg/dL (8.5-10.1); Potassium 4.7 mmol/L (3.5-5.1)
[2021-03-05] MEDS: NIFEdipine ER 30 MG TAB PO SCH (10:08)
[2021-03-05] MEDS: FLORASTOR (S. BOULARDII) 250 MG CAP PO SCH (10:08)
[2021-03-05] MEDS: ENOXAPARIN SOD 150 MG/1 ML SYRINGE SC SCH ×2 (10:09→22:02)
[2021-03-05] MEDS: PANTOPRAZOLE 40 MG TAB PO SCH (10:09)
[2021-03-05 12:55] VITALS: BP 124/67
[2021-03-05 17:00] VITALS: BP 102/67
[2021-03-05 21:50] VITALS: BP 106/51
[2021-03-05] MEDS: ATORVASTATIN 20 MG TAB PO SCH (22:02)
[2021-03-06 05:16] VITALS: BP 126/81
[2021-03-06 05:36] LABS: Basophils # (auto) 0.1 10 ^3/uL (0-0.2); Basophils % (auto) 1.5 % (0.0-2.0); Eosinophils # (auto) 0.4 10 ^3/uL (0-0.8); Eosinophils % (auto) 8.6 % (0.0-7.0); Hematocrit 40.9 % (41.0-53.0); Hemoglobin 13.5 g/dL (13.5-17.5); Lymphocytes # (auto) 1.3 10 ^3/uL (0.4-5.4); Lymphocytes % (auto) 27.1 % (10.0-50.0); Mean Corpuscular Hemoglobin 31.1 pg (28.0-32.0); Mean Corpuscular Hgb Conc. 33.1 g/dL (32.0-36.0); Mean Corpuscular Volume 94.1 fL (80.0-100.0); Monocytes # (auto) 0.5 10 ^3/uL (0-1.3); Monocytes % (auto) 9.3 % (0.0-12.0); Neutrophils # (auto) 2.6 10 ^3/uL (1.6-8.6); Neutrophils % (auto) 53.5 % (37.0-80.0); Nucleated Red Blood Cells % 0.1 %; Red Blood Cells 4.35 10^6/uL (4.5-5.90); Red Cell Distribution Width 14.6 % (11.8-14.3); White Blood Cell 4.9 10^3/uL (4.4-10.8)
[2021-03-06 06:04] LABS: Potassium 4.6 mmol/L (3.5-5.1)
[2021-03-06] MEDS: LEVOTHYROXINE SODIUM 50 MCG TAB PO SCH (06:11)
[2021-03-06 06:12] LABS: Albumin 3.1 g/dL (3.4-5.0); BUN/Creatinine Ratio 14.8; Bilirubin, Total 0.5 mg/dL (0.2-1.0); Calcium 8.4 mg/dL (8.5-10.1); Total Protein 8.2 g/dL (6.4-8.2)
[2021-03-06 09:00] VITALS: BP 116/58
[2021-03-06] MEDS: PANTOPRAZOLE 40 MG TAB PO SCH (09:35)
[2021-03-06] MEDS: NIFEdipine ER 30 MG TAB PO SCH (09:35)
[2021-03-06] MEDS: HYDROcodone-ACET 5/325MG TAB PO PRN (09:35)
[2021-03-06] MEDS: ENOXAPARIN SOD 150 MG/1 ML SYRINGE SC SCH (09:35)
[2021-03-06] MEDS: FLORASTOR (S. BOULARDII) 250 MG CAP PO SCH (09:35)
[2021-03-06] MEDS ORDERED: EDARBI 80 MG PO SCH ×2 (10:00→10:31)
[2021-03-06] MEDS ORDERED: LOSARTAN POTASSIUM 50 MG TAB PO SCH (10:00)
[2021-03-06] MEDS ORDERED: FURO1TAB33 PO (11:54)
[2021-03-06 13:00] VITALS: BP 114/70
== END 2021-03-06 14:50 | disposition home or self-care (01) | DRG 300 ==
LOC: ER 17:38 → OVERFLOW 21:26 → CENTRAL 03-05 02:55
PROVIDERS: ADMIT Nurse Practitioner; ATTEND Nurse Practitioner
DX: I82.401 Acute embolism and thrombosis of unspecified deep veins of right lower extremity (principal); Z68.41 Body mass index [BMI] 40.0-44.9, adult; N17.9 Acute kidney failure, unspecified; D64.9 Anemia, unspecified; I82.503 Chronic embolism and thrombosis of unspecified deep veins of lower extremity, bilateral; E03.9 Hypothyroidism, unspecified; E66.01 Morbid (severe) obesity due to excess calories; Z20.822 Contact with and (suspected) exposure to COVID-19; I10 Essential (primary) hypertension; Z79.01 Long term (current) use of anticoagulants; Z83.3 Family history of diabetes mellitus
CPT/HCPCS: 36415; 71045; 80048; 80053; 85025; 85379; 85610; 85730; 87426; 93970; 96372; 96374; 96375; G0378; J2405

== ENCOUNTER 2024-04-24 15:09 | Emergency (ER) | payer BC ==
[~2024-04-24 15:09] MED LIST changes: -CLIN300C8 PO; +FURO1TAB33 PO; -LEV50T PO; -NIFE1TAB30 PO; +POM PO; -SACC250C PO
[2024-04-25] MEDS ORDERED: DOXY100C4 PO (03:44)
== END 2024-04-25 02:30 | disposition left against medical advice (07) ==
LOC: ER 15:09
DX: L02.91 Cutaneous abscess, unspecified (principal); Z53.21 Procedure and treatment not carried out due to patient leaving prior to being seen by health care provider

== ENCOUNTER 2024-04-25 02:23 | Emergency (ER) | payer BC ==
[~2024-04-25] VITALS: Ht 185.4 cm; Wt 109.0 kg
[2024-04-25 02:28] VITALS: BP 131/75; PULSE 100; RESP 20; TEMP 97.9; O2SAT 97
[2024-04-25] MEDS: LIDOCAINE 1% HCL (LOCAL ANESTH.) INJ 20ML MDV ID ONE (03:26)
--- NOTE | 2024-04-25 03:42 | ED.PDOC ---
History of Present Illness(SKN HPI Comments This is a 63-year-old male presents to the ED with chief complaint abscess to right buttocks. Patient states abscess x6 months. Currently being treated with Keflex and Bactrim x3 months by his PCP. He reports no improvement. Patient states he called his PCP and was told to come into the ER for drainage. 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 Denies fevers, chills, nausea, vomiting, chest pain, shortness of breath, or diarrhea. Chief Complaint: Abscess Time Seen by MD: 02:30 Primary Care Provider: SHAVON History of Present Illness: Nurses Notes, Medications, Allergies Allergies: Coded Allergies: No Known Drug Allergy (Verified Allergy, Unknown, 01/28/20) Home Meds Active Scripts Doxycycline Hyclate (Doxycycline Hyclate) 100 Mg Cap, 1 CAP PO BID for 14 Days, #28 CAP Prov:ION DOAN 04/25/24 Furosemide (Lasix) 20 Mg Tb, 1 TAB PO DAILY, #30 TAB 5 Refills Prov:GULSHAN FOOTE MD 03/06/21 Levothyroxine Sodium (Euthyrox) 50 Mcg Tab, 50 MCG PO DAILY for 30 Days, #30 TAB Prov:SERENA REDDING MD 02/04/20 Atorvastatin Calcium (ATORVASTATIN CALCIUM) 20 Mg Tab, 1 TAB PO DAILY for 30 Days, #30 TAB 2 Refills Prov:SERENA REDDING MD 02/04/20 Apixaban Base (ELIQUIS) 5 Mg Tab, 5 MG PO BID for 30 Days, #60 TAB Prov:SERENA REDDING MD 02/04/20 Reported Medications Patients Own Medication (PATIENTS OWN MEDICATION) ., 80 MG PO PTS OWN MED-OBTAIN FROM PT AND SEND TO RX DRUG: FREQ: RX# EXP: DATE DISP: TECH: [facility]: 03/05/21 Njodgqtqmmj-Ajzckdiepyfmh-Ftgt (Biktarvy 50-200-25 mg) 1 Tab Tab, 1 TAB PO DAILY, TAB 08/17/20 Information Source: Patient Mode of Arrival: Ambulatory Past Medical History PAST MEDICAL HISTORY: High Lipids, HIV, HTN Surgical History: Denies all surgeries Family History Family History: Family hx of DM Social History Smoker: Non-Smoker Alcohol: Denies ETOH Use Drugs: Denies Drug Use Lives In: Home Constitutional: denies: chills, diaphoresis, fatigue, fever, malaise, sweats, weakness, others EENTM: denies: blurred vision, double vision, ear bleeding, ear discharge, ear drainage, ear pain, ear ringing, eye pain, eye redness, hearing loss, mouth pain, mouth swelling, nasal discharge, nose bleeding, nose congestion, nose pain, photophobia, tearing, throat pain, throat swelling, voice changes, others Respiratory: denies: cough, hemoptysis, orthopnea, SOB at rest, shortness of breath, SOB with excertion, stridor, wheezing, others Cardiovascular: denies: chest pain, dizzy spells, diaphoresis, Dyspnea on exertion, edema, irregular heart beat, left arm pain, lightheadedness, palpitations, PND, syncope, others Gastrointestinal: denies: abdomen distended, abdominal pain, blood streaked bowels, constipated, diarrhea, dysphagia, difficulty swallowing, hematemesis, melena, nausea, poor appetite, poor fluid intake, rectal bleeding, rectal pain, vomiting, others Genitourinary: denies: burning, dysuria, flank pain, frequency, hematuria, incontinence, penile discharge, penile sore, pain, testicle pain, testicle swelling, urgency, others Neurological: denies: dizziness, fainting, headache, left sided numbness, left sided weakness, numbness, paresthesia, pre-existing deficit, right sided numbness, right sided weakness, seizure, speech problems, tingling, tremors, weakness, others Musculoskeletal: denies: back pain, gout, joint pain, joint swelling, muscle pain, muscle stiffness, neck pain, others Integumetry: reports: others (Abscess right buttocks); denies: bruises, change in color, change in hair/nails, dryness, laceration, lesions, lumps, rash, wounds Allergic/Immunocompromised: denies: Difficulty Healing, Frequent Infections, Hives, Itching, others Hematologic/Lymphatic: denies: anemia, blood clots, easy bleeding, easy bruising, swollen glands, others Endocrine: denies: excessive hunger, excessive sweating, excessive thirst, excessive urination, flushing, intolerance to cold, intolerance to heat, unexplained weight gain, unexplained weight loss, others Psychiatric: denies: anxiety, bipolar disorder, depression, hopeless, panic disorder, schizophrenia, sleepless, suicidal, others Physical Exam General Appearance: No Apparent Distress, Normal HEENT: Pharynx Normal Neck: Full Range of Motion, Non-Tender Respiratory: Lungs Clear, No Respiratory Distress, Normal Breath Sounds Cardiovascular: No Murmur, Normal Peripheral Pulses, Regular Rate/Rhythm Breast Exam: Deferred Gastrointestinal: Non Tender, Soft Genitalia: Deferred Pelvic: Deferred Rectal: Deferred Extremities: Normal capillary refill, Normal inspection, Normal range of motion, Non-tender, No pedal edema Musculoskeletal : Apperance: Normal Neurologic: Alert, track and field coach II-XII nml as Tested, No Motor Deficits, Normal Affect, Normal Mood, No Sensory Deficits Cerebellar Function: Normal Reflexes: Normal Skin: Dry, Normal Color, Warm, Wounds (Right buttocks with large abscess estimate 3 in x 3 in without fluctuance. Surrounding erythema without streaking.) Lymphatic: No Adenopathy Was a procedure done? Was a procedure done?: Yes Sedation Sedation?: No Informed consent obtained: Yes Incision and Drainage Incision and Drainage: Abscess Location Right buttocks Anesthetic: Lidocaine with Epi Preparation: Betadine Incision and Wound: Blood Informed consent obtained: Yes Risks/benefits/alt described: Yes Notes No purulent Drainage noted mostly blood. Patient on Eliquis abscesses likely deep if no improvement with antibiotic change patient will need to have it surgically drained during anesthesia. Differential Diagnosis (INTG) Differential Diagnosis: Cellulitis, Hematoma Differential Diagnosis: Cellulitis X-Ray, Labs, Meds, VS Vital Signs Date Time Temp Pulse Resp B/P (MAP) Pulse Ox O2 Delivery O2 Flow Rate FiO2 04/25/24 02:28 97.8 73 16 177/86 (116) 99 Current Medications Medications (Trade) Dose Ordered Sig/Pamela Route Start Time Stop Time Status Last Admin Ceftriaxone Sodium (Rocephin) 1,000 mg ONCE ONCE IM 04/25/24 03:45 04/25/24 03:46 DC 04/25/24 03:45 Acetaminophen (Tylenol Tablet Or Capsule) 500 mg ONCE ONCE PO 04/25/24 04:15 04/25/24 04:16 DC 04/25/24 04:22 X-Ray, Labs, Meds, VS Comment See procedure note, No purulent Drainage noted mostly blood. Patient on Eliquis abscesses likely deep if no improvement with antibiotic change patient will need to have it surgically drained during anesthesia. Reports no improvement with Keflex and Bactrim. Start antibiotics we will start trial of doxycycline 100 mg twice daily times 14 days. Patient given 1 g Rocephin IM. Tylenol 1 g p.o. 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 He is to follow up with his PCP in 2-3 days for abscess re-evaluation, oral for general surgeon for drainage the depth of abscess and patient currently on Eliquis. ER return precautions given patient indicated understanding agrees with discharge plan of care. Time of 1ST Reevaluation: 03:41 Reevaluation 1ST: Improved Patient Education/Counseling: Diagnosis, Treatment, Prognosis, Need For Follow Up Family Education/Counseling: No Family Present Departure 1 Departure Time of Disposition: 03:41 Impression: Primary Impression: Abscess Disposition: 01 HOME / SELF CARE / HOMELESS Condition: Stable e-Prescriptions Doxycycline Hyclate (Doxycycline Hyclate) 100 Mg Cap 1 CAP PO BID for 14 Days, #28 CAP Prov: ION DOAN 04/25/24 Discharged With: Self Critical Care Note Critical Care Time?: No Stability Stability form required: No ION DOAN Apr 25, 2024 03:42
[2024-04-25] MEDS ORDERED: DOXY100C4 PO (03:44)
[2024-04-25] MEDS: cefTRIAXone SOD 1,000 MG VL IM ONE ×2 (03:45→04:24)
[2024-04-25] MEDS: ACETAMINOPHEN 500 MG TAB or CAP PO ONE ×2 (04:22→04:24)
== END 2024-04-25 04:45 | disposition home or self-care (01) ==
LOC: ER 02:23
DX: L02.31 Cutaneous abscess of buttock (principal); I10 Essential (primary) hypertension; E78.5 Hyperlipidemia, unspecified; Z79.899 Other long term (current) drug therapy
CPT/HCPCS: 10060; 96372; 99283; J0696; J2003

== ENCOUNTER 2024-11-29 11:37 | Inpatient (IN) | payer BC ==
[~2024-11-29] VITALS: Ht 185.4 cm; Wt 122.2 kg
--- NOTE | 2024-11-29 12:03 | ED.PDOC ---
History of Present Illness HPI Comments 63 y/o M presents with c/c of right gluteal abscess. Patient reports 1x year history of abscess following initial unprovoked and atraumatic onset. He states on being advised to come to the ED for hospital admission for further workup by his primary care provider, Dr. Gurrola after multiple failed incision and drainage procedures and at-home antibiotic courses. Last incision and drainage was performed at [facility]. Patient denies any fever, chills, or further associated at this time. Vital signs were stable on arrival. Chief Complaint: Abscess Time Seen by MD: 11:45 Primary Care Provider: SANDS Reviewed Notes: Nurses Notes, Medications, Allergies Allergies: Coded Allergies: No Known Drug Allergy (Verified Allergy, Unknown, 01/28/20) Home Meds Active Scripts Furosemide (Lasix) 20 Mg Tb, 1 TAB PO DAILY, #30 TAB 5 Refills Prov:GULSHAN FOOTE MD 03/06/21 Levothyroxine Sodium (Euthyrox) 50 Mcg Tab, 50 MCG PO DAILY for 30 Days, #30 TAB Prov:SERENA REDDING MD 02/04/20 Atorvastatin Calcium (ATORVASTATIN CALCIUM) 20 Mg Tab, 1 TAB PO DAILY for 30 Days, #30 TAB 2 Refills Prov:SERENA REDDING MD 02/04/20 Apixaban Base (ELIQUIS) 5 Mg Tab, 5 MG PO BID for 30 Days, #60 TAB Prov:SERENA REDDING MD 02/04/20 Reported Medications Metformin Hydrochloride (Metformin Hcl Er) 500 Mg Tab, 1 TAB PO TID 11/29/24 Amlodipine Besylate (Amlodipine Besylate) 10 Mg Tab, 1 TAB PO DAILY 11/29/24 Patients Own Medication (PATIENTS OWN MEDICATION) ., 80 MG PO PTS OWN MED-OBTAIN FROM PT AND SEND TO RX DRUG: FREQ: RX# EXP: DATE DISP: TECH: FORMERLY [facility] [place]: 03/05/21 Dzcnyrfafit-Qvtwodomksqkz-Zjsw (Biktarvy 50-200-25 mg) 1 Tab Tab, 1 TAB PO DAILY, TAB 08/17/20 Information Source: Patient Mode of Arrival: Ambulatory Severity: Moderate Timing: Months Duration: Since onset Prehospital treatment: Other (see HPI) Past Medical History PAST MEDICAL HISTORY: High Lipids, HIV, HTN Surgical History: Denies all surgeries Family History Family History: Family hx of DM Social History Smoker: Non-Smoker Alcohol: Denies ETOH Use Drugs: Denies Drug Use Lives In: Home Constitutional: denies: chills, diaphoresis, fatigue, fever, malaise, sweats, weakness, others EENTM: denies: blurred vision, double vision, ear bleeding, ear discharge, ear drainage, ear pain, ear ringing, eye pain, eye redness, hearing loss, mouth pain, mouth swelling, nasal discharge, nose bleeding, nose congestion, nose pain, photophobia, tearing, throat pain, throat swelling, voice changes, others Respiratory: denies: cough, hemoptysis, orthopnea, SOB at rest, shortness of breath, SOB with excertion, stridor, wheezing, others Cardiovascular: denies: chest pain, dizzy spells, diaphoresis, Dyspnea on exertion, edema, irregular heart beat, left arm pain, lightheadedness, palpitations, PND, syncope, others Gastrointestinal: denies: abdomen distended, abdominal pain, blood streaked bowels, constipated, diarrhea, dysphagia, difficulty swallowing, hematemesis, melena, nausea, poor appetite, poor fluid intake, rectal bleeding, rectal pain, vomiting, others Genitourinary: denies: burning, dysuria, flank pain, frequency, hematuria, incontinence, penile discharge, penile sore, pain, testicle pain, testicle swelling, urgency, others Neurological: denies: dizziness, fainting, headache, left sided numbness, left sided weakness, numbness, paresthesia, pre-existing deficit, right sided numbness, right sided weakness, seizure, speech problems, tingling, tremors, weakness, others Musculoskeletal: denies: back pain, gout, joint pain, joint swelling, muscle pain, muscle stiffness, neck pain, others Integumetry: reports: wounds (Right gluteal wound); denies: bruises, change in color, change in hair/nails, dryness, laceration, lesions, lumps, rash, others Allergic/Immunocompromised: denies: Difficulty Healing, Frequent Infections, Hives, Itching, others Hematologic/Lymphatic: denies: anemia, blood clots, easy bleeding, easy b ruising, swollen glands, others Endocrine: denies: excessive hunger, excessive sweating, excessive thirst, excessive urination, flushing, intolerance to cold, intolerance to heat, unexplained weight gain, unexplained weight loss, others Psychiatric: denies: anxiety, bipolar disorder, depression, hopeless, panic disorder, schizophrenia, sleepless, suicidal, others All Other Systems: Reviewed and Negative (as per HPI) Physical Exam General Appearance: Moderate Distress (Ileg-cv-emdkwsjh distress due to gluteal wound), Normal HEENT: Normal ENT Inspection, Pharynx Normal, TMs Normal Neck: Full Range of Motion, Non-Tender, Normal, Normal Inspection Respiratory: Chest Non-Tender, Lungs Clear, No Accessory Muscle Use, No Respir atory Distress, Normal Breath Sounds Cardiovascular: No Edema, No JVD, No Murmur, No Gallop, Normal Peripheral Pulses, Regular Rate/Rhythm Breast Exam: Deferred Gastrointestinal: No Organomegaly, Non Tender, No Pulsatile Mass, Normal Bowel Sounds, Soft Genitalia: Deferred Pelvic: Deferred Rectal: Deferred Extremities: No calf tenderness, Normal capillary refill, Normal inspection, Normal range of motion, Non-tender, No pedal edema Neurologic: Alert, No Motor Deficits, Normal Affect, Normal Mood, No Sensory Deficits Cerebellar Function: NOT DONE Reflexes: NOT DONE Skin: Wounds (Patient has a palm sized large indurated region of the right anterior gluteus. No [place] appreciated. Localized erythema and exquisitely tender to palpation throughout.) Lymphatic: No Adenopathy Was a procedure done? Was a procedure done?: No Differential Dx Considerations may include: abscess, cellulitis, unhealing wound, sepsis, among others X-Ray, Labs, Meds, VS Vital Signs Date Time Temp Pulse Resp B/P (MAP) Pulse Ox O2 Delivery O2 Flow Rate FiO2 11/29/24 11:40 97.9 89 18 128/69 95 97.9 Lab Test 11/29/24 12:35 Range/Units White Blood Count 4.9 4.4-10.8 10^3/uL Red Blood Count 3.56 L 4.5-5.90 10^6/uL Hemoglobin 11.5 L 13.5-17.5 g/dL Hematocrit 33.4 L 41.0-53.0 % Mean Corpuscular Volume 93.9 80.0-100.0 fL Mean Corpuscular Hemoglobin 32.2 H 28.0-32.0 pg Mean Corpuscular Hemoglobin Concent 34.3 32.0-36.0 g/dL Red Cell Distribution Width 14.5 H 11.8-14.3 % Platelet Count 232 140-450 10^3/uL Mean Platelet Volume 6.6 L 6.9-10.8 fL Neutrophils (%) (Auto) 62.8 37.0-80.0 % Lymphocytes (%) (Auto) 18.3 10.0-50.0 % Monocytes (%) (Auto) 10.5 0.0-12.0 % Eosinophils (%) (Auto) 7.9 H 0.0-7.0 % Basophils (%) (Auto) 0.5 0.0-2.0 % Neutrophils # (Auto) 3.1 1.6-8.6 10 ^3/uL Lymphocytes # (Auto) 0.9 0.4-5.4 10 ^3/uL Monocytes # (Auto) 0.5 0-1.3 10 ^3/uL Eosinophils # (Auto) 0.4 0-0.8 10 ^3/uL Basophils # (Auto) 0 0-0.2 10 ^3/uL Nucleated Red Blood Cells 0.1 % Sodium Level 142 136-145 mmol/L Potassium Level 4.2 3.5-5.1 mmol/L Chloride Level 104 98-107 mmol/L Carbon Dioxide Level 27 20-31 mmol/L Anion Gap 11 5-15 Blood Urea Nitrogen 12 9-23 mg/dL Creatinine 1.09 0.700-1.30 mg/dL Glomerular Filtration Rate Calc 77 >90 mL/min BUN/Creatinine Ratio 11.0 10.0-20.0 Serum Glucose 144 H 74-106 mg/dL Calcium Level 8.7 8.7-10.4 mg/dL Total Bilirubin 0.3 0.2-1.0 mg/dL Aspartate Amino Transferase (AST) 23 13-40 U/L Alanine Aminotransferase (ALT) 15 7-40 U/L Alkaline Phosphatase 70 46-116 U/L Troponin I High Sensitivity < 3 L </=54 ng/L B-Type Natriuretic Peptide 9.15 0-100 pg/mL Total Protein 7.1 5.7-8.2 g/dL Albumin 3.9 3.2-4.8 g/dL Lipase 27 12-53 U/L X-Ray, Labs, Meds, VS Comment Dr. Gurrola called regarding patient's admission; He states on reaching out to [facility] Dr. Yost regarding patient. Patient will be admitted under Dr. Gurrola. Timestamp: 1210 Time of 1ST Reevaluation: 15:48 Reevaluation 1ST: Unchanged Consultation: PCP Patient Education/Counseling: Diagnosis, Treatment, Other (need for admission ) Family Education/Counseling: Diagnosis, Treatment, No Family Present SEPSIS Sepsis Screen Date sepsis recognized/suspect: Nov 29, 2024 Time Sepsis recognized/suspect: 1144 Recent Procedure: No On Antibiotic Therapy: No Respiratory Rate >20: No Heart Rate >90: No Temp<36 C (96.8 F) or >38.3 C: No SBP <90 or MAP <65 mmHG: No New Acute Mental Status Change: No Is the patient on CPAP, BIPAP,: No Physician Orders Heplock Iv (11/29/24 ) Electrocardigram (11/29/24 12:01) Vital Signs Date Time Temp Pulse Resp B/P (MAP) Pulse Ox O2 Delivery O2 Flow Rate FiO2 11/29/24 11:40 97.9 89 18 128/69 95 97.9 Laboratory Tests Test 11/29/24 12:35 White Blood Count 4.9 10^3/uL (4.4-10.8) Departure 1 Departure Time of Disposition: 15:48 Impression: Primary Impression: Abscess Additional Impression: Cellulitis and abscess of buttock Disposition: ADMITTED INPATIENT Condition: Stable Discharged With: Self Critical Care Note Critical Care Time?: No Stability Stability form required: No Heart Score Heart Score: Heart Score Response (Comments) Value History N/A 0 EKG N/A 0 Age N/A 0 Risk Factors N/A 0 Troponin N/A 0 Total 0 I personally scribed for OTTONIEL SCTOT PAC ([email or web address]) on 11/29/24 at 12:03. Electronically submitted by Gunner Cifuentes ([email or web address]). I personally scribed for OTTONIEL SCOTT PAC ([email or web address]) on 11/29/24 at 12:17. Electronically submitted by Gunner Cifuentes ([email or web address]). OTTONIEL SCOTT PAC Nov 29, 2024 12:03
[2024-11-29] MEDS: HYDROmorphone HCL 2 MG/ML VL/or syr IV ONE (12:15)
[2024-11-29 13:07] LABS: Hematocrit 33.4 % (41.0-53.0); Hemoglobin 11.5 g/dL (13.5-17.5); Mean Corpuscular Hemoglobin 32.2 pg (28.0-32.0); Mean Corpuscular Volume 93.9 fL (80.0-100.0); Nucleated Red Blood Cells % 0.1 %
[2024-11-29] MEDS ORDERED: NITROGLYCERIN 0.4 MG SL TAB SL PRN (13:15)
[2024-11-29] MEDS ORDERED: MORPHINE SULFATE INJ 2 MG/ml SYRG IV PRN (13:15)
[2024-11-29 13:24] LABS: Alanine Aminotransferase 15 U/L (7-40); Albumin 3.9 g/dL (3.2-4.8); Alkaline Phosphatase 70 U/L (46-116); Anion Gap 11 (5-15); BUN/Creatinine Ratio 11.0 (10.0-20.0); Bilirubin, Total 0.3 mg/dL (0.2-1.0); Blood Urea Nitrogen 12 mg/dL (9-23); Calcium 8.7 mg/dL (8.7-10.4); Carbon Dioxide 27 mmol/L (20-31); Chloride 104 mmol/L (98-107); Lipase 27 U/L (12-53); Potassium 4.2 mmol/L (3.5-5.1); Sodium 142 mmol/L (136-145); Total Protein 7.1 g/dL (5.7-8.2)
[2024-11-29 13:33] LABS: Glucose 144 mg/dL (74-106)
[2024-11-29] MEDS: IOHEXOL 300 MG/ML 100ML BOTTLE IJ ONE (14:03)
[2024-11-29] MEDS ORDERED: AMLO1TAB23 PO (14:26)
[2024-11-29] MEDS ORDERED: METF-1145 PO (14:26)
[2024-11-29] MEDS: PIPERACILLIN-TAZOB 3.375GM 100 ML IV ONE (14:30)
--- NOTE | 2024-11-29 14:49 | DVHHP2 ---
Admitting Diagnosis: buttock abscess History of Present Illness Home Meds Active Scripts Furosemide (Lasix) 20 Mg Tb, 1 TAB PO DAILY, #30 TAB 5 Refills Prov:GULSHAN FOOTE MD 03/06/21 Levothyroxine Sodium (Euthyrox) 50 Mcg Tab, 50 MCG PO DAILY for 30 Days, #30 TAB Prov:SERENA REDDING MD 02/04/20 Atorvastatin Calcium (ATORVASTATIN CALCIUM) 20 Mg Tab, 1 TAB PO DAILY for 30 Days, #30 TAB 2 Refills Prov:SERENA REDDING MD 02/04/20 Apixaban Base (ELIQUIS) 5 Mg Tab, 5 MG PO BID for 30 Days, #60 TAB Prov:SERENA REDDING MD 02/04/20 Reported Medications Metformin Hydrochloride (Metformin Hcl Er) 500 Mg Tab, 1 TAB PO TID 11/29/24 Amlodipine Besylate (Amlodipine Besylate) 10 Mg Tab, 1 TAB PO DAILY 11/29/24 Patients Own Medication (PATIENTS OWN MEDICATION) ., 80 MG PO PTS OWN MED-OBTAIN FROM PT AND SEND TO RX DRUG: FREQ: RX# EXP: DATE DISP: TECH: FORMERLY [facility] [place]: 03/05/21 Rymutgpcidl-Neffjldoagdzm-Qpwq (Biktarvy 50-200-25 mg) 1 Tab Tab, 1 TAB PO DAILY, TAB 08/17/20 Past Medical History Patient Family History: Diabetes mellitus G8 SISTER GRANDMOTHER H&P Exam Vital Signs Vital Signs Date Time Temp Pulse Resp B/P (MAP) Pulse Ox O2 Delivery O2 Flow Rate FiO2 11/29/24 11:40 97.9 89 18 128/69 95 97.9 SEPSIS Sepsis Screen Date sepsis recognized/suspect: Nov 29, 2024 Time Sepsis recognized/suspect: 1144 Recent Procedure: No On Antibiotic Therapy: No Respiratory Rate >20: No Heart Rate >90: No Temp<36 C (96.8 F) or >38.3 C: No SBP <90 or MAP <65 mmHG: No New Acute Mental Status Change: No Is the patient on CPAP, BIPAP,: No Physician Orders Heplock Iv (11/29/24 ) Troponin-I Hs (11/29/24 13:01) Troponin-I Hs (11/29/24 15:01) Electrocardigram (11/29/24 12:01) Admit (11/29/24 13:14) Nitroglycerin Sublingual (Ntrostat Subli (11/29/24 13:15) Morphine Sulfate Injection (11/29/24 13:15) Stat Ekg For Chest Pain (11/29/24 13:14) Notify Of Changes From Base (11/29/24 13:14) Liquor Department Manager For 24 Hours (11/29/24 13:14) Emergency Dysrhythmia Protocol (11/29/24 13:14) Rhythm Strips Once Every Shift (11/29/24 13:14) Oxygen By Nasal Cannula (11/29/24 13:14) Pelvis With Contrast Only (11/29/24 13:17) Hiv-1 Quant Pcr Ngrph Genosure (11/29/24 14:10) Cd4/Cd8 Ratio Profile (11/29/24 14:10) Blood Culture (11/29/24 14:14) Blood Culture (11/29/24 14:15) Patients Own Medication (11/30/24 10:00) Losartan Tablet (Cozaar Tablet) (11/30/24 10:00) Hydrochlorothiazide Tablet (Hydrochlorot (11/30/24 10:00) Amlodipine Tablet (Norvasc Tablet) (11/30/24 10:00) Vancomycin Per Pharmacy (11/29/24 18:15) Piperacillin-Tazob 3.375gm (Zosyn 3.375g (11/29/24 22:00) Chest Portable (11/29/24 14:24) Piperacillin-Tazob 3.375gm (Zosyn 3.375g (11/29/24 14:30) Vancomycin 1gm/250ml Kit (11/29/24 15:30) * Surgical Consult (11/29/24 ) Vital Signs Date Time Temp Pulse Resp B/P (MAP) Pulse Ox O2 Delivery O2 Flow Rate FiO2 11/29/24 11:40 97.9 89 18 128/69 95 97.9 Laboratory Tests Test 11/29/24 12:35 White Blood Count 4.9 10^3/uL (4.4-10.8) Labs/Xrays Labs Test 11/29/24 13:52 11/29/24 12:35 Range/Units White Blood Count 4.9 4.4-10.8 10^3/uL Red Blood Count 3.56 L 4.5-5.90 10^6/uL Hemoglobin 11.5 L 13.5-17.5 g/dL Hematocrit 33.4 L 41.0-53.0 % Mean Corpuscular Volume 93.9 80.0-100.0 fL Mean Corpuscular Hemoglobin 32.2 H 28.0-32.0 pg Mean Corpuscular Hemoglobin Concent 34.3 32.0-36.0 g/dL Red Cell Distribution Width 14.5 H 11.8-14.3 % Platelet Count 232 140-450 10^3/uL Mean Platelet Volume 6.6 L 6.9-10.8 fL Neutrophils (%) (Auto) 62.8 37.0-80.0 % Lymphocytes (%) (Auto) 18.3 10.0-50.0 % Monocytes (%) (Auto) 10.5 0.0-12.0 % Eosinophils (%) (Auto) 7.9 H 0.0-7.0 % Basophils (%) (Auto) 0.5 0.0-2.0 % Neutrophils # (Auto) 3.1 1.6-8.6 10 ^3/uL Lymphocytes # (Auto) 0.9 0.4-5.4 10 ^3/uL Monocytes # (Auto) 0.5 0-1.3 10 ^3/uL Eosinophils # (Auto) 0.4 0-0.8 10 ^3/uL Basophils # (Auto) 0 0-0.2 10 ^3/uL Nucleated Red Blood Cells 0.1 % Sodium Level 142 136-145 mmol/L Potassium Level 4.2 3.5-5.1 mmol/L Chloride Level 104 98-107 mmol/L Carbon Dioxide Level 27 20-31 mmol/L Anion Gap 11 5-15 Blood Urea Nitrogen 12 9-23 mg/dL Creatinine 1.09 0.700-1.30 mg/dL Glomerular Filtration Rate Calc 77 >90 mL/min BUN/Creatinine Ratio 11.0 10.0-20.0 Serum Glucose 144 H 74-106 mg/dL Calcium Level 8.7 8.7-10.4 mg/dL Total Bilirubin 0.3 0.2-1.0 mg/dL Aspartate Amino Transferase (AST) 23 13-40 U/L Alanine Aminotransferase (ALT) 15 7-40 U/L Alkaline Phosphatase 70 46-116 U/L B-Type Natriuretic Peptide 9.15 0-100 pg/mL Total Protein 7.1 5.7-8.2 g/dL Albumin 3.9 3.2-4.8 g/dL Lipase 27 12-53 U/L Assessment/Plan Problem List: (1) CKD (chronic kidney disease) (2) Abscess (3) HIV (human immunodeficiency virus infection) (4) Abscess of multiple sites of buttock (5) HTN (hypertension) Plan Chief Complaint: Persistent draining wound on buttock, ongoing since following incision and drainage; request for medication refills; difficulty sleeping. History of Present Illness: The patient presents with persistent drainage and tenderness from a buttock wound, ongoing for approximately 3-4 months. Initial incision and drainage ("just cut it open and let the pus come out") were performed at [facility] ([place] not in the operating room and without placement of a drain or tube. The wound has continued to drain pus and has "turned dark" around the site. The patient describes intermittent hardening and persistent tenderness of the area. Previous treatment included courses of ciprofloxacin and doxycycline antibiotics prescribed by the provider in April. There was confusion about subsequent antibiotics; however, on review, additional antibiotics following the incision and drainage were not given. Ibuprofen and [place] for pain were prescribed by other physicians post-procedure. Cultures from prior infections showed MRSA, beta-hemolytic streptococcus, and Acinetobacter, all previously sensitive to ciprofloxacin and clindamycin. The provider notes partial but incomplete improvement since the initial drainage. The wound continues to drain with persistent discoloration and is not fully healing. The current concern is residual infection and possible underlying abscess. The patient denies recent fever or systemic symptoms. The patient also requests refills on current medications and reports difficulty falling asleep. Past Medical History: Diabetes mellitus (diagnosed June 2023, last A1c 8.3% in June 2023) Hypertension HIV (on Biktarvy) Hyperlipidemia (implied from medication) History of blood thinners (on Eliquis) History of weight loss therapy (Ozempic) Medications: Metformin 500 mg, 3 times daily Ozempic, previously 0.5 mg weekly; increased to 1 mg weekly (4 mg pen, titrate as instructed) Losartan Amlodipine Hydrochlorothiazide Eliquis Biktarvy Trazodone 50 mg nightly as needed for sleep, may titrate up to 200 mg as tolerated Ibuprofen (as needed, previously prescribed) [place] (previously prescribed) Objective Findings: Wound Exam: Persistent opening on buttock with drainage; dark discoloration around the site; partially improved from previous visits but not fully closed; wound remains tender and is not healing completely. Other Objective Data: Not provided in transcript. 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) Plan: Chronic Buttock Wound/Infection given multiple courses of antibiotics (bactrim/levofloxacin, clindamycin/cefdinir) sp debridement several months ago, abscess continues to drainage, persistent cellulitis, appears deeper blood cultures, CT pelvis w contrast vancomycin and Zosyn general surgery consult Diabetes Order repeat hemoglobin A1c and comprehensive lab panel prior to next visit hold metformin 500 mg TID and hold ozempic lipro sliding scale Hypertension Continue current regimen: Losartan, amlodipine, hydrochlorothiazide Refill all antihypertensive medications HIV Continue Biktarvy Monitor with next set of labs Order comprehensive metabolic panel, A1c, and relevant follow-up labs Patient advised to fast prior to labs for best results Plan discussed with: Patient TITUS VELÁZQUEZ MD Nov 29, 2024 14:49
--- NOTE | 2024-11-29 14:57 | DVH ---
CT PELVIS WITH CONTRAST ONLY HISTORY: evaluate extent of buttock abscess COMPARISON: None PROCEDURE: Helical CT images were obtained of the pelvis without intravenous contrast. Sagittal and c oronal reconstructions are provided. ORAL CONTRAST: None. ADDITIONAL IMAGES: None TOTAL RADIATION DOSE: CTDIvol: 32 mGy DLP: 1353 mGy x cm FINDINGS: BOWEL: Normal. BLADDER: Normal. REPRODUCTIVE ORGANS: Normal. LYMPH NODES: No lymphadenopathy. PERITONEUM / RETROPERITONEUM: Normal. VESSELS:Normal ABDOMINAL WALL: Left upper inner thigh and right buttock skin thickening and fat stranding can be see n with cellulitis, however no fluid collection to suggest for abscess. Small fat containing umbilical hernia. BONES: Normal. IMPRESSION: Left upper inner thigh and right buttock skin thickening and fat stranding can be seen with celluliti s, however no fluid collection to suggest for abscess.
--- NOTE | 2024-11-29 15:07 | DVH ---
CHEST RADIOGRAPH Indication: evaluate for pneumonia Technique: Single frontal view of the chest was obtained COMPARISON: CHEST XRAY 1 VIEW on DOS: 03/04/21, CT ANGIO CHEST CONTRAST on DOS: 08/17/20, CHEST PORTAB LE on DOS: 08/17/20, CHEST XRAY 1 VIEW on DOS: 02/03/20 FINDINGS: Lines and Tubes: None Lungs: Increased interstitial prominence Pleura: No effusion. No pneumothorax. Cardiomediastinal contours: Unremarkable Bones: Unremarkable IMPRESSION: Increased interstital prominence. This may represent pulmonary vascular congestion or viral pneumonia . Clinical correlation advised.
[2024-11-29] MEDS ORDERED: VANCOMYCIN 1GM/250ML KIT 250 ML IV SCH (15:30)
[2024-11-29] MEDS ORDERED: VANCOMYCIN PER PHARMACY 0 MG IV SCH (18:15)
[2024-11-29 18:30] VITALS: BP 143/67; PULSE 52; RESP 16; TEMP 98; O2SAT 96
[2024-11-29 19:56] VITALS: PULSE 57; RESP 16; O2SAT 90
[2024-11-29 19:57] VITALS: BP 143/67; PULSE 52; RESP 16; TEMP 98; O2SAT 96
[2024-11-29 20:00] VITALS: PULSE 57; RESP 16; O2SAT 90
[2024-11-29 21:00] VITALS: BP 144/87; PULSE 53; RESP 16; TEMP 97.8; O2SAT 97
[2024-11-29] MEDS: PIPERACILLIN-TAZOB 3.375GM 100 ML IV SCH (22:05)
[2024-11-30] VITALS (8 sets, daily range): BP systolic 105–140; BP diastolic 51–80; PULSE 55–71; RESP 16–19; TEMP 97.7–98.7; O2SAT 90–98
[2024-11-30] MEDS: HYDROcodone-ACET 5/325MG TAB PO PRN (04:45)
[2024-11-30 08:06] LABS: Hematocrit 36.4 % (37.5-51.0); Hemoglobin 11.9 g/dL (13.0-17.7); MCH 29.9 pg (26.6-33.0); MCHC 32.7 g/dL (31.5-35.7); MCV 92 fL (79-97); RBC 3.98 x10E6/uL (4.14-5.80); RDW 13.5 % (11.6-15.4); WBC 6.4 x10E3/uL (3.4-10.8)
[2024-11-30] MEDS: LOSARTAN POTASSIUM 50 MG TAB PO SCH (10:00)
[2024-11-30] MEDS: hydroCHLOROthiazide 25 MG TAB PO SCH (10:00)
[2024-11-30] MEDS: VANCOMYCIN 1GM/250ML KIT 250 ML IV SCH (11:30)
--- NOTE | 2024-11-30 17:07 | DVHINCON2 ---
Date of service: Nov 30, 2024 Family History: Diabetes mellitus G8 SISTER GRANDMOTHER Allergies: Coded Allergies: No Known Drug Allergy (Verified Allergy, Unknown, 01/28/20) Home Meds Active Scripts Furosemide (Lasix) 20 Mg Tb, 1 TAB PO DAILY, #30 TAB 5 Refills Prov:GULSHAN FOOTE MD 03/06/21 Levothyroxine Sodium (Euthyrox) 50 Mcg Tab, 50 MCG PO DAILY for 30 Days, #30 TAB Prov:SERENA REDDING MD 02/04/20 Atorvastatin Calcium (ATORVASTATIN CALCIUM) 20 Mg Tab, 1 TAB PO DAILY for 30 Day s, #30 TAB 2 Refills Prov:SERENA REDDING MD 02/04/20 Apixaban Base (ELIQUIS) 5 Mg Tab, 5 MG PO BID for 30 Days, #60 TAB Prov:SERENA REDDING MD 02/04/20 Reported Medications Metformin Hydrochloride (Metformin Hcl Er) 500 Mg Tab, 1 TAB PO TID 11/29/24 Amlodipine Besylate (Amlodipine Besylate) 10 Mg Tab, 1 TAB PO DAILY 11/29/24 Patients Own Medication (PATIENTS OWN MEDICATION) ., 80 MG PO PTS OWN MED-OBTAIN FROM PT AND SEND TO RX DRUG: FREQ: RX# EXP: DATE DISP: TECH: [facility]: 03/05/21 Dnkoyneovvk-Nlyayqxbremal-Vcci (Biktarvy 50-200-25 mg) 1 Tab Tab, 1 TAB PO DAILY, TAB 08/17/20 Current Medications Current Medications Medications (Trade) Dose Ordered Sig/Pamela Route PRN Reason Start Time Stop Time Status Last Admin Patient Own Medication 1 DAILY PO 11/30/24 10:00 Losartan Potassium (Cozaar Tablet) 100 mg DAILY PO 11/30/24 10:00 Hydrochlorothiazide (hydroCHLOROthiazide TABLET) 50 mg DAILY PO 11/30/24 10:00 Amlodipine Besylate (Norvasc Tablet) 10 mg DAILY PO 11/30/24 10:00 Vancomycin HCl 0 ml @ 0 mls/hr UD IV 11/29/24 18:15 Piperacillin Sod/ Tazobactam Sod 100 ml @ 25 mls/hr Q8HR IV 11/29/24 22:00 11/30/24 06:15 Acetaminophen/ Hydrocodone Bitart (Basye 5/325MG Tab) 1 tab Q6HPRN PRN PO MODERATE PAIN (4-6 PAIN SCALE) 11/30/24 04:35 11/30/24 12:11 Vancomycin HCl 250 ml @ 250 mls/hr Q1H IV 11/30/24 11:30 11/30/24 13:29 DC 11/30/24 12:56 Vital Signs Vital Signs Date Time Temp Pulse Resp B/P (MAP) Pulse Ox O2 Delivery O2 Flow Rate FiO2 11/30/24 13:00 97.7 60 19 123/65 (84) 96 97.7 11/29/24 20:00 Room Air* 0 21 Labs/Diagnostic Data Labs Test 11/30/24 06:30 11/29/24 14:41 11/29/24 12:35 Range/Units Creatinine 0.98 0.700-1.30 mg/dL Glomerular Filtration Rate Calc 87 >90 mL/min Random Vancomycin Level < 3.0 L 5-10 ug/mL White Blood Count 6.4 3.4-10.8 x10E3/uL Red Blood Count 3.98 L 4.14-5.80 x10E6/uL Hemoglobin 11.9 L 13.0-17.7 g/dL Hematocrit 36.4 L 37.5-51.0 % Mean Corpuscular Volume 92 79-97 fL Mean Corpuscular Hemoglobin 29.9 26.6-33.0 pg Mean Corpuscular Hemoglobin Concent 32.7 31.5-35.7 g/dL Red Cell Distribution Width 13.5 11.6-15.4 % Platelet Count 238 150-450 x10E3/uL Neutrophils (%) (Auto) 53 Not Estab. % Lymphocytes (%) (Auto) 25 Not Estab. % Monocytes (%) (Auto) 12 Not Estab. % Eosinophils (%) (Auto) 8 Not Estab. % Basophils (%) (Auto) 1 Not Estab. % Absolute Neutrophils (auto) 3.4 1.4-7.0 x10E3/uL Absolute Lymphocytes (auto) 1.6 0.7-3.1 x10E3/uL Absolute Monocytes (auto) 0.8 0.1-0.9 x10E3/uL Absolute Eosinophils (auto) 0.5 H 0.0-0.4 x10E3/uL Absolute Basophils (auto) 0.1 0.0-0.2 x10E3/uL Immature Granulocytes % 1 Not Estab. % Immature Granulocytes # 0.1 0.0-0.1 x10E3/uL Nucleated Red Blood Cells . Immature Blood Cells . Hematology Comments Note: . Troponin I High Sensitivity 3 L </=54 ng/L Mean Platelet Volume 6.6 L 6.9-10.8 fL Neutrophils # (Auto) 3.1 1.6-8.6 10 ^3/uL Lymphocytes # (Auto) 0.9 0.4-5.4 10 ^3/uL Monocytes # (Auto) 0.5 0-1.3 10 ^3/uL Eosinophils # (Auto) 0.4 0-0.8 10 ^3/uL Basophils # (Auto) 0 0-0.2 10 ^3/uL Sodium Level 142 136-145 mmol/L Potassium Level 4.2 3.5-5.1 mmol/L Chloride Level 104 98-107 mmol/L Carbon Dioxide Level 27 20-31 mmol/L Anion Gap 11 5-15 Blood Urea Nitrogen 12 9-23 mg/dL BUN/Creatinine Ratio 11.0 10.0-20.0 Serum Glucose 144 H 74-106 mg/dL Calcium Level 8.7 8.7-10.4 mg/dL Total Bilirubin 0.3 0.2-1.0 mg/dL Aspartate Amino Transferase (AST) 23 13-40 U/L Alanine Aminotransferase (ALT) 15 7-40 U/L Alkaline Phosphatase 70 46-116 U/L B-Type Natriuretic Peptide 9.15 0-100 pg/mL Total Protein 7.1 5.7-8.2 g/dL Albumin 3.9 3.2-4.8 g/dL Lipase 27 12-53 U/L Microbiology Date/Time Source Procedure Growth Status 11/29/24 14:41 Blood Blood Culture - Preliminary NO GROWTH AFTER 24 HOURS OF INCUBATION. Resulted Assessment [id number]. C/O LEFT BUTTOCK PAIN AND SWELLING R/O RESIDUAL LEFT BUTTOCK ABSCESS/CELLULITIS CONTINUE IV ABX CONSIDER EMERGENT I/D LEFT BUTTOCK ABSCESS, POSSIBLE SECONDARY CLOSURE NON HEALING WOUND NURSE AT BEDSIDE Plan discussed with: Patient CUCA GARRISON MD Nov 30, 2024 17:07
--- NOTE | 2024-11-30 22:39 | DVHINCON2 ---
DATE OF CONSULTATION: 11/30/2024 HISTORY OF PRESENT ILLNESS: This patient is 63 years old coming in with swelling, drainage and pain on his left buttock. He has had this for about 3-4 months. Possible incisional drainage was done and it was left open and let the pus come out according to him. It was done at [facility] in [place]. It was not done in the operating room without placement of a drainage tube. The wound has continued to drain pus and has turned dark on the side as he came in with persistent tenderness and hardening in that location. He has not been given antibiotics off and on based upon his presentation at various places with various physicians and cultures from prior infection show MRSA, Streptococcus and they were all previously sensitive to ciprofloxacin and clindamycin. Currently, he has been seen by Infectious Disease and antibiotics have been recommended and I was asked to see with possible drainage. PAST MEDICAL HISTORY: Diabetes, hypertension, HIV, history of blood thinners, history of weight loss therapy. PAST SURGICAL HISTORY: As mentioned above. PHYSICAL EXAMINATION: VITAL SIGNS: Afebrile, stable signs. HEENT: With no evidence of pallor, cyanosis or jaundice. NECK: Supple and nontender. No thyromegaly. No lymphadenopathy. CHEST AND LUNGS: Clear. HEART: Within normal limits. ABDOMEN: Soft. NEUROLOGIC: Not assessed. EXTREMITIES: Reveals left buttock swelling with possibility of residual abscess and cellulitis. PLAN: To consider incisional drainage and wound exploration, possible secondary closure of the left buttock area. Benefits and risks discussed and consent obtained and nurse at the bedside. MD CATHERINE Elam/RAMA/NICK TID: [id number] RECEIPT: [id number] cc: Yasmany Gurrola MD
[2024-12-01] VITALS (10 sets, daily range): BP systolic 124–167; BP diastolic 57–70; PULSE 48–74; RESP 15–20; TEMP 97.7–98.4; O2SAT 91–100
[2024-12-01] MEDS ORDERED: VANCOMYCIN 1GM/250ML KIT 250 ML IV SCH
[2024-12-01] MEDS: VANCOMYCIN 1GM/250ML KIT 250 ML IV SCH (01:16)
[2024-12-01 07:47] LABS: Hematocrit 37.1 % (41.0-53.0); Hemoglobin 12.5 g/dL (13.5-17.5); Mean Corpuscular Hemoglobin 29.5 pg (28.0-32.0); Mean Corpuscular Volume 87.6 fL (80.0-100.0); Nucleated Red Blood Cells % 0.0 %
[2024-12-01 08:02] LABS: INR 1.01 (0.9-1.15); Partial Thromboplastin Time 24.9 SEC (24.5-34.5); Prothrombin Time 10.7 sec (9.3-11.8)
--- NOTE | 2024-12-01 08:28 | ECG ---
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
[2024-12-01] MEDS ORDERED: GLYCOPYRROLATE 0.2 MG/ML 1ML VIAL ONE (09:10)
[2024-12-01] MEDS ORDERED: KETOROLAC TROMETH 30 MG/ML 1ML VIAL ONE (09:10)
[2024-12-01] MEDS ORDERED: PROPOFOL 10 MG/ML 20 ML IV ONE ×3 (09:10→09:40)
[2024-12-01] MEDS ORDERED: ONDANSETRON HCL 4 MG/2 ML VIAL ONE (09:10)
[2024-12-01] MEDS ORDERED: LIDOCAINE 1% INJ PF 5ML AMP ONE (09:10)
[2024-12-01] MEDS: LIDOCAINE 1% HCL (LOCAL ANESTH.) INJ 20ML MDV ONE (09:12)
[2024-12-01] MEDS ORDERED: KETAMINE 50mg/ML 1ml syringe ONE (09:13)
--- NOTE | 2024-12-01 09:47 | DVHOP2 ---
Operative Report [id number] ABSCESS/NON HEALING WOUND RIGHT BUTTOCL I/D R BUTTOCK ABSCESS WITH SEC CLOSURE NON HEALING WOUND ONE PACKING GAUZE EBL 25 CC NO COMPLICATIONS STABLE TRANSFER TO RECOVERY ROOM CUCA GARRISON MD Dec 01, 2024 09:47
[2024-12-01] MEDS ORDERED: hydrALAZINE HCL 20 MG/ML VL IV PRN (10:00)
[2024-12-01] MEDS ORDERED: ONDANSETRON HCL 4 MG/2 ML VIAL IV PRN (10:00)
[2024-12-01] MEDS ORDERED: FLUMAZENIL 0.1 MG/ML INJ 10ML MDV IV PRN (10:00)
[2024-12-01] MEDS ORDERED: NALOXONE HCL 0.4 MG/ML VIAL IV PRN (10:00)
[2024-12-01] MEDS ORDERED: fentaNYL CITRATE 100 MCG/2 ML VL IV PRN (10:00)
[2024-12-01] MEDS ORDERED: HYDROmorphone HCL 2 MG/ML VL/or syr IV PRN (10:00)
[2024-12-01 10:07] LABS: CD4/CD8 Ratio 0.18 (0.92-3.72)
[2024-12-01 10:10] LABS: Hepatitis B Surface Antigen Negative (Negative)
[2024-12-01 10:30] LABS: Hepatitis C Antibody Negative (Negative)
--- NOTE | 2024-12-01 13:55 | DVHPN2 ---
Progress Note Objective vital signs Vital Sign Date Time Temp Pulse Resp B/P (MAP) Pulse Ox O2 Delivery O2 Flow Rate FiO2 12/01/24 10:10 48 15 139/74 (95) 100 12/01/24 10:10 Nasal Cannula 0 12/01/24 10:10 100 12/01/24 09:51 98.0 98.0 Total Intake and Output 11/30/24 11/30/24 12/01/24 15:00 23:00 07:00 Intake Total 800 ml 550 ml Balance 800 ml 550 ml medications Current Medications Medications Dose Ordered Sig/Pamela Route Start Time Stop Time Status Last Admin Dose Admin Nitroglycerin 0.4 mg Q5MINP PRN SL 11/29/24 13:15 Morphine Sulfate 2 mg Q30M PRN IV 11/29/24 13:15 Patient Own Medication 1 DAILY PO 11/30/24 10:00 Losartan Potassium 100 mg DAILY PO 11/30/24 10:00 Hydrochlorothiazide 50 mg DAILY PO 11/30/24 10:00 Amlodipine Besylate 10 mg DAILY PO 11/30/24 10:00 Vancomycin HCl 0 ml @ 0 mls/hr UD IV 11/29/24 18:15 Piperacillin Sod/ Tazobactam Sod 100 ml @ 25 mls/hr Q8HR IV 11/29/24 22:00 12/01/24 05:19 25 MLS/HR Acetaminophen/ Hydrocodone Bitart 1 tab Q6HPRN PRN PO 11/30/24 04:35 12/01/24 05:38 1 TAB Vancomycin HCl 250 ml @ 250 mls/hr Q12H IV 12/01/24 01:15 12/01/24 12:39 250 MLS/HR Oxycodone HCl 10 mg ONCE PRN PO 12/01/24 10:00 12/01/24 10:48 10 MG laboratory and microbiology Laboratory Tests 12/01/24 07:17 11/29/24 12:35 Test 11/29/24 12:35 Range/Units Serum Glucose 144 H 74-106 mg/dL Microbiology Date/Time Source Procedure Growth Status 11/29/24 14:41 Blood Blood Culture - Preliminary NO GROWTH AFTER 24 HOURS OF INCUBATION. Resulted My Orders My Orders Orders - TITUS VELÁZQUEZ MD Procedure Category Date Status Time Vancomycin,Trough LAB 12/02/24 Verified 11:00 Vancomycin Per BRITTANY 12/02/24 In Process Pharmacy Protoc 11:00 Vancomycin 1gm/250ml PHA 12/01/24 In Process Kit 01:15 Creatinine LAB 12/02/24 Verified 04:00 Regular Diet DIET 12/01/24 Transmitted Lunch Ertapenem Sod Inj PHA 12/02/24 Logged (Invanz) 10:00 Morphine 2mg PHA 12/01/24 Transmitted 14:00 TITUS VELÁZQUEZ MD Dec 01, 2024 13:55
[2024-12-02] VITALS (7 sets, daily range): BP systolic 125–151; BP diastolic 63–84; PULSE 52–86; RESP 16–20; TEMP 97.9–98.6; O2SAT 95–100
--- NOTE | 2024-12-02 00:24 | DVHOP ---
DATE OF SURGERY: 12/01/2024 PREOPERATIVE DIAGNOSES: Right buttock abscess, nonhealing wound. POSTOPERATIVE DIAGNOSES: Right buttock abscess, nonhealing wound. PROCEDURE: Drainage of right buttock abscess that was residual abscess with tissue debridement and secondary closure of nonhealing wound. SURGEON: Ellis Yost MD REPAIRER WELDING SYSTEMS AND EQUIPMENT: None. ANESTHESIA: Local IV sedation. DESCRIPTION OF PROCEDURE: The patient was prepped and draped in the usual sterile fashion in the lateral position with the right side up and the area was secured for anesthesia with IV sedation and local anesthesia that was applied all around this abscess area and a nonhealing wound tissue was removed using cautery going up to the subcutaneous tissues and once this was done, there was a residual abscess that was drained out and cultures were sent and hemostasis was secured. Irrigation was performed and closure was done using 2-0 silk suture. Iodoform packing gauze was applied for the deeper wound and a dressing was applied. The patient tolerated the procedure well and was taken back to the recovery room in stable condition. MD CATHERINE Elam/GUILLERMO TID: [id number] RECEIPT: [id number] cc: Yasmany Gurrola MD
[2024-12-02] MEDS: ceFAZolin 1GM VL ONE (07:45)
[2024-12-02] MEDS: ERTAPENEM SOD INJ 1 GM in SODIUM CHL 0.9% 50 ML IV SCH (08:37)
--- NOTE | 2024-12-02 17:50 | DVHPN2 ---
Progress Note Objective vital signs Vital Sign Date Time Temp Pulse Resp B/P (MAP) Pulse Ox O2 Delivery O2 Flow Rate FiO2 12/02/24 13:00 98.6 65 16 150/81 (104) 98 98.6 12/02/24 08:00 Room Air* 0 21 Total Intake and Output 12/01/24 12/01/24 12/02/24 15:00 23:00 07:00 Intake Total 260 ml 550 ml 810 ml Balance 260 ml 550 ml 810 ml medications Current Medications Medications Dose Ordered Sig/Pamela Route Start Time Stop Time Status Last Admin Dose Admin Nitroglycerin 0.4 mg Q5MINP PRN SL 11/29/24 13:15 Morphine Sulfate 2 mg Q30M PRN IV 11/29/24 13:15 Patient Own Medication 1 DAILY PO 11/30/24 10:00 Losartan Potassium 100 mg DAILY PO 11/30/24 10:00 12/02/24 08:39 100 MG Hydrochlorothiazide 50 mg DAILY PO 11/30/24 10:00 Amlodipine Besylate 10 mg DAILY PO 11/30/24 10:00 12/02/24 08:38 10 MG Vancomycin HCl 0 ml @ 0 mls/hr UD IV 11/29/24 18:15 Acetaminophen/ Hydrocodone Bitart 1 tab Q6HPRN PRN PO 11/30/24 04:35 12/01/24 05:38 1 TAB Oxycodone HCl 10 mg ONCE PRN PO 12/01/24 10:00 12/01/24 10:48 10 MG Ertapenem 1 gm/ Sodium Chloride 50 ml @ 100 mls/hr DAILY IV 12/02/24 10:00 12/02/24 08:37 100 MLS/HR Morphine Sulfate 2 mg Q2HPRN PRN IV 12/01/24 14:00 Vancomycin HCl 250 ml @ 166.667 mls/hr Q8H IV 12/02/24 21:00 laboratory and microbiology Laboratory Tests 12/02/24 06:54 12/01/24 07:17 11/29/24 12:35 Test 11/29/24 12:35 Range/Units Serum Glucose 144 H 74-106 mg/dL Microbiology Date/Time Source Procedure Growth Status 12/01/24 09:34 Buttock Right Gram Stain - Final Resulted 12/01/24 09:34 Buttock Right Anaerobic Culture - Preliminary Resulted 12/01/24 09:34 Buttock Right Aerobic Culture - Preliminary Resulted 11/29/24 14:41 Blood Blood Culture - Preliminary NO GROWTH AFTER 72 HOURS OF INCUBATION. Resulted Problem List/Assessment/Plan Problem List/Assessment/Plan tolerating pain w/ morphine prn no drainage from packed buttock abscess prelim operative cultures without growth recommend midline placement IV dalbavancin and ertapenem IVP x 10 days once home health and abx set up can discharge patient home My Orders My Orders Orders - TITUS VELÁZQUEZ MD Procedure Category Date Status Time Vancomycin PHA 12/02/24 In Process 1.5gm/250ml 21:00 Vancomycin,Trough LAB 12/03/24 Verified 20:00 Creatinine LAB 12/03/24 Verified 04:00 Vancomycin Per BRITTANY 12/02/24 In Process Pharmacy Protoc 21:00 Insert Midline ORDERS 12/02/24 Transmitted 17:44 * Zanjero CONS 12/02/24 Transmitted Consult 17:45 TITUS VELÁZQUEZ MD Dec 02, 2024 17:50
[2024-12-02] MEDS: VANCOMYCIN 1.5GM/250ML 250 ML IV SCH (20:17)
[2024-12-03] VITALS (8 sets, daily range): BP systolic 109–122; BP diastolic 49–71; PULSE 58–86; RESP 16–18; TEMP 97.6–98.5; O2SAT 95–97
[2024-12-03] MEDS: MORPHINE SULFATE INJ 2 MG/ml SYRG IV PRN (03:02)
[2024-12-04] VITALS (9 sets, daily range): BP systolic 114–141; BP diastolic 69–90; PULSE 50–92; RESP 15–19; TEMP 97.8–98.7; O2SAT 92–99
[2024-12-04 07:09] LABS: Hemoglobin 13.3 g/dL (13.5-17.5)
[2024-12-04 07:17] LABS: Hematocrit 37.3 % (41.0-53.0); Mean Corpuscular Hemoglobin 35.4 pg (28.0-32.0); Mean Corpuscular Volume 99.5 fL (80.0-100.0)
[2024-12-04 09:20] LABS: Total Cells Counted 100.0 (100)
--- NOTE | 2024-12-04 10:44 | DVHPN2 ---
Progress Note Date Seen: Dec 04, 2024 Medical Necessity Reason Pt with a Central, PICC or Fol: No Objective vital signs Vital Sign Date Time Temp Pulse Resp B/P (MAP) Pulse Ox O2 Delivery O2 Flow Rate FiO2 12/04/24 08:56 98.3 57 17 136/90 (105) 97 98.3 12/04/24 08:00 Room Air* 0 21 Total Intake and Output 12/03/24 12/03/24 12/04/24 15:00 23:00 07:00 Intake Total 600 ml 400 ml Balance 600 ml 400 ml medications Current Medications Medications Dose Ordered Sig/Apmela Route Start Time Stop Time Status Last Admin Dose Admin Nitroglycerin 0.4 mg Q5MINP PRN SL 11/29/24 13:15 Morphine Sulfate 2 mg Q30M PRN IV 11/29/24 13:15 Patient Own Medication 1 DAILY PO 11/30/24 10:00 Losartan Potassium 100 mg DAILY PO 11/30/24 10:00 12/04/24 08:16 100 MG Hydrochlorothiazide 50 mg DAILY PO 11/30/24 10:00 Amlodipine Besylate 10 mg DAILY PO 11/30/24 10:00 12/04/24 08:16 10 MG Vancomycin HCl 0 ml @ 0 mls/hr UD IV 11/29/24 18:15 Acetaminophen/ Hydrocodone Bitart 1 tab Q6HPRN PRN PO 11/30/24 04:35 12/01/24 05:38 1 TAB Oxycodone HCl 10 mg ONCE PRN PO 12/01/24 10:00 12/01/24 10:48 10 MG Ertapenem 1 gm/ Sodium Chloride 50 ml @ 100 mls/hr DAILY IV 12/02/24 10:00 12/03/24 09:06 100 MLS/HR Morphine Sulfate 2 mg Q2HPRN PRN IV 12/01/24 14:00 12/03/24 03:02 2 MG Vancomycin HCl 250 ml @ 250 mls/hr Q8H IV 12/04/24 10:30 laboratory and microbiology Laboratory Tests 12/04/24 06:11 11/29/24 12:35 Test 11/29/24 12:35 Range/Units Serum Glucose 144 H 74-106 mg/dL Microbiology Date/Time Source Procedure Growth Status 12/01/24 09:34 Buttock Right Gram Stain - Final Resulted 12/01/24 09:34 Buttock Right Anaerobic Culture - Preliminary Resulted 12/01/24 09:34 Buttock Right Aerobic Culture - Preliminary Resulted 11/29/24 14:41 Blood Blood Culture - Preliminary NO GROWTH AFTER 72 HOURS OF INCUBATION. Resulted Problem List/Assessment/Plan Problem List/Assessment/Plan AFEBRILE VSS R BUTTOCK WOUND HEALING PACKING REMOVED RETAINING SUTURE IN PLACE NO COMPLICATIONS CLEARED FOR DISCHARGE INSTRUCTIONS RE DIET ACTIVITY F/UP WOUND CARE GIVEN Plan discussed with: Patient Dietary Evaluation Review Comments: 1) Florian 1 pk BID 2) Monitor PO intake, lab values, weight trend, and I/O Expected Outcomes/Goals: To meet >75% estimated needs Wound to improve FU 5-7 days CUCA GARRISON MD Dec 04, 2024 10:44
[2024-12-04] MEDS: VANCOMYCIN 1GM/250ML KIT 250 ML IV SCH (12:39)
[2024-12-04] MEDS ORDERED: BICT1TAB PO ×2 (16:15)
[2024-12-04] MEDS ORDERED: HYDR25TA5 PO (16:25)
[2024-12-04] MEDS ORDERED: METF-1145 PO (16:25)
[2024-12-04] MEDS ORDERED: AML5T PO (16:25)
[2024-12-04] MEDS ORDERED: LOSA-534 PO (16:25)
--- NOTE | 2024-12-04 16:45 | DVHPN2 ---
Progress Note Medical Necessity Reason Pt with a Central, PICC or Fol: No Objective vital signs Vital Sign Date Time Temp Pulse Resp B/P (MAP) Pulse Ox O2 Delivery O2 Flow Rate FiO2 12/04/24 13:00 98.7 63 16 134/82 (99) 98 98.7 12/04/24 08:00 Room Air* 0 21 Total Intake and Output 12/03/24 12/03/24 12/04/24 15:00 23:00 07:00 Intake Total 50 ml 600 ml 400 ml Balance 50 ml 600 ml 400 ml medications Current Medications Medications Dose Ordered Sig/Pamela Route Start Time Stop Time Status Last Admin Dose Admin Nitroglycerin 0.4 mg Q5MINP PRN SL 11/29/24 13:15 Morphine Sulfate 2 mg Q30M PRN IV 11/29/24 13:15 Patient Own Medication 1 DAILY PO 11/30/24 10:00 Losartan Potassium 100 mg DAILY PO 11/30/24 10:00 12/04/24 08:16 100 MG Hydrochlorothiazide 50 mg DAILY PO 11/30/24 10:00 Amlodipine Besylate 10 mg DAILY PO 11/30/24 10:00 12/04/24 08:16 10 MG Vancomycin HCl 0 ml @ 0 mls/hr UD IV 11/29/24 18:15 Acetaminophen/ Hydrocodone Bitart 1 tab Q6HPRN PRN PO 11/30/24 04:35 12/01/24 05:38 1 TAB Oxycodone HCl 10 mg ONCE PRN PO 12/01/24 10:00 12/01/24 10:48 10 MG Ertapenem 1 gm/ Sodium Chloride 50 ml @ 100 mls/hr DAILY IV 12/02/24 10:00 12/04/24 11:01 100 MLS/HR Morphine Sulfate 2 mg Q2HPRN PRN IV 12/01/24 14:00 12/03/24 03:02 2 MG Vancomycin HCl 250 ml @ 250 mls/hr Q8H IV 12/04/24 10:30 12/04/24 12:39 250 MLS/HR laboratory and microbiology Laboratory Tests 12/04/24 06:11 11/29/24 12:35 Test 11/29/24 12:35 Range/Units Serum Glucose 144 H 74-106 mg/dL Microbiology Date/Time Source Procedure Growth Status 12/01/24 09:34 Buttock Right Gram Stain - Final Resulted 12/01/24 09:34 Buttock Right Anaerobic Culture - Preliminary Resulted 12/01/24 09:34 Buttock Right Aerobic Culture - Preliminary Resulted 11/29/24 14:41 Blood Blood Culture - Final NO GROWTH AFTER 5 DAYS OF INCUBATION. Complete Problem List/Assessment/Plan Problem List/Assessment/Plan tolerating pain w/ morphine prn no drainage from packed buttock abscess prelim operative cultures without growth recommend midline placement IV dalbavancin and ertapenem IVP x 10 days once home health and abx set up can discharge patient home My Orders My Orders Orders - TITUS VELÁZQUEZ MD Procedure Category Date Status Time Vancomycin 1gm/250ml PHA 12/04/24 In Process Kit 10:30 Vancomycin Per BRITTANY 12/04/24 In Process Pharmacy Protoc 11:00 Creatinine LAB 12/05/24 Verified 04:00 Vancomycin,Trough LAB 12/05/24 Verified 10:00 Complete Blood Count LAB 12/05/24 Verified 04:00 * General Handling Supervisor CONS 12/04/24 Transmitted Consult Discharge DISCHARGE 12/04/24 Transmitted 16:03 Dietary Evaluation Review Comments: 1) Florian 1 pk BID 2) Monitor PO intake, lab values, weight trend, and I/O Expected Outcomes/Goals: To meet >75% estimated needs Wound to improve FU 5-7 days TITUS VELÁZQUEZ MD Dec 04, 2024 16:45
--- NOTE | 2024-12-04 17:24 | DVHDS2 ---
Physician Discharge Progress N Final Diagnosis: buttock abscess HIV Disposition: Home Discharge Instructions: Diet: Regular Activity: Light activity Medications: resume biktarvy fu with infectious diseases in 2 weeks Follow Up Care: Discharge Statement: "Patient was advised to return to the ER or call 911 if any headaches, dizziness, shortness of breath, chest pain, abdominal pain, bleeding, fevers, or worsening of medical condition. Patient was counseled about treatment plan, medications, possible side effects, patientverbalized understanding. All questions were answered to the best of my ability. This discharge took greater then 30 minutes in planning, reviewing documentation, counseling the patient, and discussing with other team members." TITUS VELÁZQUEZ MD Dec 04, 2024 17:24
[2024-12-05] VITALS (9 sets, daily range): BP systolic 113–136; BP diastolic 65–86; PULSE 56–77; RESP 16–18; TEMP 97.7–98.4; O2SAT 95–98
[2024-12-05 08:03] LABS: Hematocrit 37.9 % (41.0-53.0); Hemoglobin 12.9 g/dL (13.5-17.5); Mean Corpuscular Hemoglobin 31.1 pg (28.0-32.0); Mean Corpuscular Volume 91.0 fL (80.0-100.0)
[2024-12-05 08:46] LABS: Total Cells Counted 100.0 (100)
--- NOTE | 2024-12-05 22:10 | DVHDS2 ---
New Physician D'charge PN Discharge Diagnosis buttock abscess HIV Reason(s) For Hospitalization Surgery Treatment Plan Discharge Disposition Home Discharge Instructions Diet: Regular Activity: Light activity Medications: resume biktarvy fu with infectious diseases in 2 weeks Follow Up Care Discharge Statement: "Patient was advised to return to the ER or call 911 if any headaches, dizziness, shortness of breath, chest pain, abdominal pain, bleeding, fevers, or worsening of medical condition. Patient was counseled about treatment plan, medications, possible side effects, patientverbalized understanding. All questions were answered to the best of my ability. This discharge took greater then 30 minutes in planning, reviewing documentation, counseling the patient, and discussing with other team members." TITUS VELÁZQUEZ MD Dec 05, 2024 22:10
[2024-12-06] VITALS (7 sets, daily range): BP systolic 101–126; BP diastolic 54–80; PULSE 55–70; RESP 15–18; TEMP 97.3–98.5; O2SAT 95–98
[2024-12-06 08:23] LABS: Hematocrit 38.3 % (41.0-53.0); Hemoglobin 12.9 g/dL (13.5-17.5); Mean Corpuscular Hemoglobin 29.9 pg (28.0-32.0); Mean Corpuscular Volume 88.8 fL (80.0-100.0); Nucleated Red Blood Cells % 0.2 %
[2024-12-07] VITALS (8 sets, daily range): BP systolic 93–114; BP diastolic 36–99; PULSE 65–87; RESP 16–20; TEMP 97.2–98.9; O2SAT 96–97
[2024-12-07 10:54] LABS: Hematocrit 38.7 % (41.0-53.0); Hemoglobin 12.9 g/dL (13.5-17.5); Mean Corpuscular Hemoglobin 29.1 pg (28.0-32.0); Mean Corpuscular Volume 87.0 fL (80.0-100.0); Nucleated Red Blood Cells % 0.1 %
[2024-12-07] MEDS ORDERED: VANCOMYCIN 1GM/250ML KIT 250 ML IV SCH (17:30)
[2024-12-07] MEDS: VANCOMYCIN 1GM/250ML KIT 250 ML IV SCH (22:58)
[2024-12-08 05:00] VITALS: BP 100/52; PULSE 63; RESP 18; TEMP 97.8; O2SAT 94
[2024-12-08 08:00] VITALS: PULSE 80; RESP 19; O2SAT 97
[2024-12-08 08:02] LABS: Hematocrit 39.7 % (41.0-53.0); Hemoglobin 14.0 g/dL (13.5-17.5); Mean Corpuscular Hemoglobin 40.3 pg (28.0-32.0); Mean Corpuscular Volume 113.8 fL (80.0-100.0)
[2024-12-08 09:30] VITALS: BP 101/76; PULSE 19; RESP 80; TEMP 97.4; O2SAT 97
--- NOTE | 2024-12-08 10:41 | DVHDS2 ---
Discharge Summary Date of Admission Nov 29, 2024 at 13:14 Date of Discharge: Dec 04, 2024 Labs/Diagnostic Data: Laboratory Results Test 12/08/24 06:04 12/07/24 10:19 12/04/24 06:11 12/01/24 07:17 White Blood Count 7.6 10^3/uL (4.4-10.8) Red Blood Count 3.48 10^6/uL (4.5-5.90) Hemoglobin 14.0 g/dL (13.5-17.5) Hematocrit 39.7 % (41.0-53.0) Mean Corpuscular Volume 113.8 fL (80.0-100.0) Mean Corpuscular Hemoglobin 40.3 pg (28.0-32.0) Mean Corpuscular Hemoglobin Concent 35.4 g/dL (32.0-36.0) Red Cell Distribution Width 26.6 % (11.8-14.3) Platelet Count 128 10^3/uL (140-450) Mean Platelet Volume 8.6 fL (6.9-10.8) Neutrophils (%) (Auto) % (37.0-80.0) Lymphocytes (%) (Auto) % (10.0-50.0) Monocytes (%) (Auto) % (0.0-12.0) Basophils (%) (Auto) % (0.0-2.0) Neutrophils # (Auto) 10 ^3/uL (1.6-8.6) Lymphocytes # (Auto) 10 ^3/uL (0.4-5.4) Monocytes # (Auto) 10 ^3/uL (0-1.3) Creatinine 1.25 mg/dL (0.700-1.30) Glomerular Filtration Rate Calc 65 mL/min (>90) Eosinophils (%) (Auto) 4.5 % (0.0-7.0) Eosinophils # (Auto) 0.3 10 ^3/uL (0-0.8) Basophils # (Auto) 0 10 ^3/uL (0-0.2) Nucleated Red Blood Cells 0.1 % Vancomycin Level Trough 16.1 ug/mL (5-10) Large Platelets Few Random Vancomycin Level 10.3 ug/mL (5-10) Prothrombin Time 10.7 sec (9.3-11.8) Prothrombin Time INR 1.01 (0.9-1.15) Activated Partial Thromboplast Time 24.9 SEC (24.5-34.5) Test 11/29/24 14:41 11/29/24 12:35 Absolute Neutrophils (auto) 3.4 x10E3/uL (1.4-7.0) Absolute Lymphocytes (auto) 1.6 x10E3/uL (0.7-3.1) Absolute Monocytes (auto) 0.8 x10E3/uL (0.1-0.9) Absolute Eosinophils (auto) 0.5 x10E3/uL (0.0-0.4) Absolute Basophils (auto) 0.1 x10E3/uL (0.0-0.2) Immature Granulocytes % 1 % (Not Estab.) Immature Granulocytes # 0.1 x10E3/uL (0.0-0.1) Immature Blood Cells (.) Hematology Comments Note: (.) Troponin I High Sensitivity 3 ng/L (</=54) Percent CD4 Cells 11.4 % (30.8-58.5) Absolute CD4 Count 182 /uL (359-1519) T-Lymphocyte CD4/CD8 Ratio 0.18 (0.92-3.72) Percent CD8 Cells 64.1 % (12.0-35.5) Absolute CD8 Count 1026 /uL (109-897) Hepatitis B Surface Antigen Negative (Negative) Hepatitis C Antibody Negative (Negative) HIV-1 RNA (PCR) 579203 copies/mL (.) HIV-1 RNA (PCR) log10 Value 5.535 (.) Sodium Level 142 mmol/L (136-145) Potassium Level 4.2 mmol/L (3.5-5.1) Chloride Level 104 mmol/L (98-107) Carbon Dioxide Level 27 mmol/L (20-31) Anion Gap 11 (5-15) Blood Urea Nitrogen 12 mg/dL (9-23) BUN/Creatinine Ratio 11.0 (10.0-20.0) Serum Glucose 144 mg/dL (74-106) Calcium Level 8.7 mg/dL (8.7-10.4) Total Bilirubin 0.3 mg/dL (0.2-1.0) Aspartate Amino Transferase (AST) 23 U/L (13-40) Alanine Aminotransferase (ALT) 15 U/L (7-40) Alkaline Phosphatase 70 U/L (46-116) B-Type Natriuretic Peptide 9.15 pg/mL (0-100) Total Protein 7.1 g/dL (5.7-8.2) Albumin 3.9 g/dL (3.2-4.8) Lipase 27 U/L (12-53) Other Laboratory Tests 12/08/24 06:04 11/29/24 12:35 Final Diagnosis/Problems List buttock abscess HIV Discharge Disposition: Home Discharge Instruct/Medications Diet: Regular Activity: Light activity Medications: resume biktarvy fu with infectious diseases in 2 weeks Scheduled Amlodipine Besylate (Amlodipine Besylate), 1 TAB PO DAILY, (Reported) Amlodipine Besylate (Norvasc Tablet), 10 MG PO DAILY Apixaban Base (Eliquis), 5 MG PO BID Atorvastatin Calcium (Atorvastatin Calcium), 1 TAB PO DAILY Zgegefnomct-Rvyklpbxalxdl-Sstg (Biktarvy 50-200-25 mg), 1 TAB PO DAILY Yjtoctmpccr-Ulqrujycxqxma-Nnpi (Biktarvy 50-200-25 mg), 1 TAB PO DAILY Furosemide (Lasix), 1 TAB PO DAILY Hctz (Hydrochlorothiazide), 50 MG PO DAILY Levothyroxine Sodium (Euthyrox), 50 MCG PO DAILY Losartan Potassium (Losartan Potassium), 100 MG PO DAILY Metformin Hydrochloride (Metformin Hcl Er), 1 TAB PO TID Miscellaneous Medications Patients Own Medication (Patients Own Medication), 80 MG PO, (Reported) Discharge Statement: "Patient was advised to return to the ER or call 911 if any headaches, dizziness, shortness of breath, chest pain, abdominal pain, bleeding, fevers, or worsening of medical condition. Patient was counseled about treatment plan, medications, possible side effects, patientverbalized understanding. All questions were answered to the best of my ability. This discharge took greater then 30 minutes in planning, reviewing documentation, counseling the patient, and discussing with other team members." ASSESSMENT ASSESSMENT Assessment buttock abscess HIV TITUS VELÁZQUEZ MD Dec 08, 2024 10:41
[2024-12-08] MEDS ORDERED: METR-344 PO (10:45)
[2024-12-08 10:48] LABS: Anisocytosis Moderate; Macrocytosis Marked; Total Cells Counted 100.0 (100)
[2024-12-08] MEDS ORDERED: CEFD300C2 PO (10:56)
[2024-12-08] MEDS ORDERED: DOXY1CAP57 PO (10:57)
[2024-12-08 12:26] VITALS: BP 101/76; PULSE 80; RESP 19; TEMP 97.4; O2SAT 97
[2024-12-08 13:05] VITALS: BP 93/48; PULSE 73; RESP 19; TEMP 97.4; O2SAT 95
== END 2024-12-08 13:15 | disposition home or self-care (01) | DRG 572 ==
LOC: ER 11:37 → OVERFLOW 13:14 → WEST WING 17:56
PROVIDERS: ADMIT Internal Medicine Infectious Disease; ATTEND Internal Medicine Infectious Disease
PROC: 0JB90ZZ Excision of Buttock Subcutaneous Tissue and Fascia, Open Approach (ICD-10-PCS; principal; 2024-12-01 09:12)
PROC: 05HF33Z Insertion of Infusion Device into Left Cephalic Vein, Percutaneous Approach (ICD-10-PCS; 2024-12-03)
PROC: B54NZZA Ultrasonography of Left Upper Extremity Veins, Guidance (ICD-10-PCS; 2024-12-03)
DX: L02.31 Cutaneous abscess of buttock (principal); L03.317 Cellulitis of buttock; N18.9 Chronic kidney disease, unspecified; G47.00 Insomnia, unspecified; E78.5 Hyperlipidemia, unspecified; I12.9 Hypertensive chronic kidney disease with stage 1 through stage 4 chronic kidney disease, or unspecified chronic kidney disease; E11.22 Type 2 diabetes mellitus with diabetic chronic kidney disease; Z83.3 Family history of diabetes mellitus; Z86.718 Personal history of other venous thrombosis and embolism; Z79.84 Long term (current) use of oral hypoglycemic drugs; Z86.14 Personal history of Methicillin resistant Staphylococcus aureus infection
CPT/HCPCS: 36415; 71045; 72193; 80053; 80202; 82565; 83690; 83880; 84484; 85007; 85025; 85027; 85610; 85730; 86360; 86803; 86850; 86900; 86901; 87040; 87070; 87075; 87205; 87340; 87536; 93005; G0378; J0690; J1100; J1335; J1885; J2003; J2405; J2543; J2704